=== PATIENT | female | born 1965 | race Caucasian/White ===

== ENCOUNTER 2024-10-17 13:34 | Inpatient (IN) | payer OTHER, SELFPAY ==
--- OUTSIDE RECORDS SUMMARY | 2024-09-16 12:30 | XMS_ITS ---
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 Role Phone Olinda Quinones Primary Care Provider [phone] REASON FOR VISIT Short of breath/Lower body swelling up Social History Sex Assigned At : Social History Observation Description Sex Assigned At Female Encounters Encounter Location Date Provider Diagnosis [facility] [address] [place] [address] 09/16/2024 Olinda Quinones Plan Of Treatment Next Appt Details Provider Name:Olinda jules, 11/11/2024 03:00:00 PM, [address] [facility], [facility] [place], [address], Progress Notes * AMINAH LAND MDOB: [birth year] (58 yo F)Acc No.[id number]:09/16/2024 Progress Notes Patient: AMINAH MORRISON Provider: EVELINE Dozier :1965 A ge:58 Y S ex:Female Date:09/16/2024 Address:[address], [place], [id number] Subjective: * Chief Complaints: * 1 . Short of breath/Lower body swelling up. * Medical History: Objective: * Vitals: Assessment: Plan: * Treatment: * Images: * Electronic signature of Rere Quinones CNP on 10/17/2024 at 01:51 PM EDT Sign off status: Pending * Provider: Addis Quinones NP-Santa Date: 0 09/16/2024 Generated for Mary goins/Jorge Alberto/Antonietta on: 0 10/17/2024 01:51 PM EDT
--- OUTSIDE RECORDS SUMMARY | 2024-10-11 06:30 | XMS_ITS ---
Author Organization [employer] [facility] es Address [address] [place] [address] Care Team Providers Care Business Support Specialist Name Role Phone Olinda Quinones Primary Care Provider Allergies No Known Allergies REASON FOR VISIT High ammonia levels; Return to work. BERNY Medications Medication SIG (Take, Route, Frequency, Duration) Notes Start Date End Date Status Atorvastatin Calcium 20 MG TAKE 1 TABLET BY MOUTH DAILY; Duration: 30 days Active Spironolactone 100 MG 1 tablet Orally da jessenia; Duration: 30 days placed on hold Active Magnesium 250 MG 1 tablet with a meal Orally twice a day; Duration: 30 days Active Xifaxan 550 MG 1 tablet Orally Twic e a day; Duration: 30 days Active busPIRone HCl 10 mg TAKE 1 TABLET BY MIGUEL ÁNGEL TH TWICE DAILY 30 days; Duration: 30 Active Blood Pressure Monitor - as directed 02/20/2024 Active Ondansetron HCl 8 MG 1 tablet as needed Orally Once a day; Duration: 30 days 03/07/2024 Active Farxiga 10 mg TAKE 1 TABLET BY MIGUEL ÁNGEL TH ONCE DAILY 30 days; Duration: 30 Active Carvedilol 6.25 mg TAKE 1 TABLET BY MIGUEL ÁNGEL TH TWICE DAILY WITH FOOD; Duration: 30 Active metFORMIN HCl 1000 MG TAKE 1 TABLET BY M OUTH TWICE DAILY WITH MEALS; Duration: 30 Active Lactulose 20 GM/30ML 15 mL as needed Ora lly Once a day Active Lantus SoloStar 100 UNIT/ML INJECT 34 UNITS SUBCUTANEOUSLY ONCE DAILY; Duration: 50 days Active Dexcom G7 Electrician Supervisor - as directed 05/10/2023 Active Easy Touch Lancets 28G - USE DIRECTED ONCE DAILY; Duration: 100 Active Pen [place] 08/01 31G X 8 MM as directed once a day; Duration: 30 days 07/31/2022 Active Dexcom G7 Sensor - as directed as directed; Duration: 30 days 09/27/2022 Active Furosemide 40 MG 1 tablet Orally Once a day Active Vitamin D3 25 MCG (1000 UT) 1 capsule Orally Once a day; Duration: 30 days Active Esomeprazole Magnesium 40 MG TAKE 1 CAPSULE BY MOUTH ONCE DAILY; Duration: 30 days Active Social History Tobacco Use: Social History Observation Description Date Details (start date - stop date) Never Smoker NA - NA Sex Assigned At : Social History Observation Description Sex Assigned At Female Sexual Hx: Question Answer Notes Had sex in the last 12 months (vaginal, oral, or anal)? No Have you ever had an STD? No AUDIT-C (Standard) Question Answer Notes Did you have a drink containing alcohol in the p ast year? No Points 0 Interpretation Negative Tobacco Control (Standard) Question Answer Notes Tobacco use: Nonsmoker Vital Signs Height 64.5 in 10/11/2024 Weight 192.8 lbs 10/11/2024 BMI 32.58 kg/m2 10/11/2024 Temperature 98.1 degrees Fahrenheit 10/12/19 25 Blood pressure systolic 101 mm Hg 10/12/19 25 Blood pressure diastolic 66 mm Hg 025 Oximetry 98 % 10/11/2024 Heart Rate 69 /min 10/11/2024 Respiratory Rate 18 /min 10/11/2024 Encounters Encounter Location Date Provider Diagnosis [facility] [address] [place] [address] 10/11/2024 Olinda Quinones Diabetes mellitus ty pe 2, controlled E11.9 ; Essential (primary) hypertension I10 ; Heart failure, unspecified I50.9 ; Cirrhosis, alcoholic K70.30 ; Cardiomyopathy I42.9 and History of recent hospitalization Z92.89 Assessments Encounter Date Diagnosis (ICD Code) Assessment Notes Treatment Notes Treatment Clinical Notes Section Notes 10/11/2024 Diabetes mellitus type 2, controlled (ICD-10 - E11.9) 10/11/2024 Essential (primary) hypertension (ICD-10 - I10) 10/11/2024 Heart failure, unspecified (ICD-10 - I50.9) 10/11/2024 Cirrhosis, alcoholic (ICD-10 - K70.30) 10/11/2024 Cardiomyopathy (ICD-10 - I42.9) 10/11/2024 History of recent hospitalization (ICD-10 - Z92.89) Reviewed discharge summary from recent hospitalization. Patient taking medications as prescribed. Refills provided as patient requested. Discussed importance of taking lactulose. Follow up in 6 weeks. All questions and concerns addressed. 10/11/2024 Other Body Mass Index : Care Instructions material was published Plan Of Treatment Medication Medication Name Sig Start Date Stop Date Notes Xifaxan 550 MG 1 tablet Orally Twic e a day; Duration: 30 days Dexcom G7 Sensor - as directed as direc milady; Duration: 30 days 09/27/2022 Vitamin D3 25 MCG (1000 UT) 1 capsule Or ally Once a day; Duration: 30 days Treatment Notes Assessment Notes History of recent hospitalization Review ed discharge summary from recent hospitalization. Patient taking medications as prescribed. Refills provided as patient requested. Discussed importance of taking lactulose. Follow up in 6 weeks. All questions and concerns addressed. Other Body Mass Index: Car e Instructions material was published Next Appt Details Follow Up: 6 Weeks, Reason: Provider Name:Olinda jules, 11/11/2024 03:00:00 PM, [facility] [place], [address], Progress Notes * AMINAH LAND MDOB: [birth year] (58 yo F)Acc No.[id number]:10/11/2024 Progress Note Patient: AMINAH MORRISON Provider: EVELINE Dozier :1965 A ge:58 Y S ex:Female Date:10/11/2024 Address:[address] [place] [address], [id number] Subjective: * Chief Complaints: * 1 . High ammonia levels; Return to work. BERNY. * HPI: D epression Screening: PHQ-2 (2015 Edition) L ittle interest or pleasure in doing things??Not at all F eeling down, depressed, or hopeless? N ot at all T otal Score 0 Patient recently hospitalized due to elevated ammonia levels.? Patient admits to not taking lactulose for a week. * ROS: G eneral Review of Systems: General D enies fever, chills, weight loss. E yes D enies vision changes, no double vision or blurry vision. . H EENT D enies sore throat, ear pain., Denies fevers , chills, Denies nasal congestion, or pressure, Denies hoarseness, change in voice, difficulty swallowing. C ardiovascular D enies chest pain, palpitations, exertional dyspnea. R espiratory D enies cough, dyspnea, wheezing, sputum production, hemoptysis. G astrointestinal D enies abdominal pain, nausea, vomiting, diarrhea, or constipation. Denies blood in stool or changes in bowel habits.. G enitourinary D enies urgency, frequency, dysuria, hematuria. M usculoskeletal D enies joint pain, myalgias. D ermatology D enies rashes or lesions. N eurological D enies any lightheadedness, dizziness, headache, new numbness or tingling in hands or feet. . * Medical History: L EVEL 4, CHF, DIABETES, Depression, Cirrohis of liver, HTN, Hyperlipidemia, Hiatal hernia, Splenomegaly, Anemia, Esophageal varices, Drug Abuse. * Surgical History: H EEL SPUR 03/2011, TUBAL LIGATION 1990, Cholecystectomy , Lumpectomy Lt breast benign , right knee surgery , Left knee cartilage scrap 04/2016, EGD , total abdominal hysterectomy , Back Surgery , kyphoplasty . * Hospitalization/Major Diagno stic Procedure: C HF 01/2012, PSYCH 1-SOUTH 1999, Community acquired pneumonia 02/2013, GI bleed 02/2015, abdominal pain 05/2022, Congestive heart Failure , Ammonia Levels 12/2023, see surgical . * Family History: D aughter(s): alive. S on(s): alive. F ather: , CHF, diagnosed with Heart Disease. M other: , CHF, diagnosed with Heart Disease. M aternal Grand Mother: DIABETES, CANCER. 2 sister(s) - healthy. 2 son(s) , 1 daughter(s) - healthy. . * Social History: G eneral: T ransition of Care E R//hospital since last office visit? N o S pecialist seen since last office visit? N o Behaviors affecting health P oor/Risky Behaviors: D enies- Substance abuse/mental health issues of patient/family P atient - m [facility] Social/Support Concerns P atient: N o Ability to understand healthcare/treatment P atient: G ood Communication Barrier L anguage Barrier?: N ot Needed Sexual Hx H ad sex in the last 12 months (vaginal, oral, or anal)? N o H ave you ever had an STD? N o D rug/Alcohol: A SHY-C (Standard) D id you have a drink containing alcohol in the past year? N o P oints 0 I nterpretation N egative T obacco Use: T obacco Control (Standard) T obacco use: N onsmoker * Medications: T aking Xifaxan 550 MG Tablet 1 tablet Orally Twice a day , Taking Vitamin D3 25 MCG (1000 UT) Capsule 1 capsule Orally Once a day , Taking Furosemide 40 MG Tablet 1 tablet Orally Once a day , Taking Esomeprazole Magnesium 40 MG Capsule Delayed Release TAKE 1 CAPSULE BY MOUTH ONCE DAILY , Taking Lactulose 20 GM/30ML Solution 15 mL as needed Orally Once a day , Taking Lantus SoloStar 100 UNIT/ML Solution Pen-injector INJECT 34 UNITS SUBCUTANEOUSLY ONCE DAILY , Taking Dexcom G7 Electrician Supervisor - Device as directed , Taking Easy Touch Lancets 28G - Miscellaneous USE DIRECTED ONCE DAILY , Taking Pen [place] 5/16 31G X 8 MM Miscellaneous as directed once a day , Taking Blood Pressure Monitor - Device as directed , Taking Ondansetron HCl 8 MG Tablet 1 tablet as needed Orally Once a day , Taking Farxiga 10 mg Tablet TAKE 1 TABLET BY MOUTH ONCE DAILY 30 days , Taking Carvedilol 6.25 mg Tablet TAKE 1 TABLET BY MOUTH TWICE DAILY WITH FOOD , Taking metFORMIN HCl 1000 MG Tablet TAKE 1 TABLET BY MOUTH TWICE DAILY WITH MEALS , Taking busPIRone HCl 10 mg Tablet TAKE 1 TABLET BY MOUTH TWICE DAILY 30 days , Taking Atorvastatin Calcium 20 MG Tablet TAKE 1 TABLET BY MOUTH DAILY , Taking Spironolactone 100 MG Tablet 1 tablet Orally daily , Notes to Pharmacist: placed on hold, Taking Dexcom G7 Sensor - Miscellaneous as directed as directed , Taking Magnesium 250 MG Tablet 1 tablet with a meal Orally twice a day , Medication List reviewed and reconciled with the patient * Allergies: N .K.D.A. Objective: * Vitals: H t: 64.5 in, Wt: 192.8 lbs, BMI:32.58Index, Temp: 98.1 F, BP: 101/66 mm Hg, SaO2:98%, HR: 69 /min, RR: 18 /min. Assessment: * Assessment: 1. D iabetes mellitus type 2, controlled - E11.9 (Primary) 2 . E ssential (primary) hypertension - I10 3 . H eart failure, unspecified - I50.9 ?4. C irrhosis, alcoholic - K70.30 5 . C ardiomyopathy - I42.9 & #160; 6 . H istory of recent hospitalization - Z92.89 Plan: * Treatment: 2. H istory of recent hospitalization Notes: Reviewed discharge summary from recent hospitalization. Patient taking medications as prescribed. Refills provided as patient requested. Discussed importance of taking lactulose. Follow up in 6 weeks. All questions and concerns addressed. 3. O thers Refill Xifaxan Tablet, 550 MG, 1 tablet, Orally, Twice a day, 30 days, 60 Tablet, Refills 1; R efill Vitamin D3 Capsule, 25 MCG (1000 UT), 1 capsule, Orally, Once a day, 30 days, 30 Capsule, Refills 1. Notes: Body Mass Index: Care Instructions material was published * Procedure Codes: 3 078F DIAST BP < 80 MM HG, 3074F SYST BP LT 130 MM HG, 1160F RVW MEDS BY RX/DR IN RCRD * Preventive Medicine: COUNSELING: C ommunication to patient: Counseling for Nutrition Provided Y es Counseling for Physical Activity Provided Y es BMI management provided Y es Nutrition/Dietary Counseling provided?Yes * Follow Up: 6 Weeks Care Plan: * Problems: * Images: * Sign off status: Completed true * Provider: EVELINE Dozier Date: 10/11/2024 Generated for Mary goins/Jorge Alberto/Antonietta on: 10/17/2024 01:51 PM EDT History and Physical Notes * HPI (History of Present Illness) Category Sub-Category Detail Notes Category Not es Depression Screening PHQ-2 (2015 Edition) Little interest or pleasure in doing things?: Not at all Patient recently hospitalized due to elevated ammonia levels. Patient admits to not taking lactulose for a week. Feeling down, depressed, or hopeless?: N ot at all Total Score: 0
--- OUTSIDE RECORDS SUMMARY | 2024-10-13 10:30 | XMS_ITS ---
Author Organization [facility] es Address [address] [place] [address] Care Team Providers Care Oncology Coordinator Name Role Phone Olinda Quinones Primary Care Provider REASON FOR VISIT 3 month f/u DM, A1C Social History Sex Assigned At : Social History Observation Description Sex Assigned At Female Encounters Encounter Location Date Provider Diagnosis [facility] [address] [facility] [place] [address] 10/13/2024 lOinda Quinones Plan Of Treatment Next Appt Details Provider Name:Olinda jules, 11/11/2024 03:00:00 PM, [address] [place], [address], Progress Notes * AMINAH LAND MDOB: [birth year] (58 yo F)Acc No.[id number]:10/13/2024 Progress Notes Patient: AMINAH MORRISON Provider: EVELINE Dozier :1965 A ge:58 Y S ex:Female Date:10/13/2024 Address:[address], [place], [id number] Subjective: * Chief Complaints: * 1 . 3 month f/u DM, A1C. * Medical History: Objective: * Vitals: Assessment: Plan: * Treatment: * Images: * Electronic signature of Rere Quinones CNP on 10/17/2024 at 01:51 PM EDT Sign off status: Pending * Provider: Addis Quinones NP-Santa Date: 0 10/13/2024 Generated for Mary goins/Jorge Alberto/Antonietta on: 0 10/17/2024 01:51 PM EDT
[2024-10-17] VITALS (31 sets, daily range): BP systolic 123–183; BP diastolic 67–110; PULSE 85–112; TEMP 36.4–37.2; O2SAT 94–100; BMI 28.3; BMI 30.3
--- NOTE | 2024-10-17 13:45 | CT_ITS ---
The [address] [address] Patient Name: AMINAH LAND MRN: [id number] date: 1965 Sex: F Assigned Patient Location: ER Current Patient Location: .[facility] Accession/Order Number: [id number] Exam Date: 10/17/2024 14:03 Report Date: 10/17/2024 14:06 At the request of: MANUEL WELLINGTON Procedure: CT stroke head/brain wo con CT stroke head/brain wo con 10/17/2024 1:58 PM SIGNS AND SYMPTOMS: Confusion TECHNIQUE:Multi-detector CT axial slices of the brain were obtained without IV contrast. CT was performed with one or more of the following dose reduction techniques: Automated exposure control, adjustment of the mA and/or kV according to patient size, or use of iterative reconstruction technique. COMPARISON: 10/01/2024 FINDINGS: There is no shift of the midline structures, acute intracranial bleeding, mass effects, or evidence of acute ischemia. The ventricular system is normal in size. The brainstem and the cerebellum are unremarkable. The visualized intraorbital contents, the visualized paranasal sinuses, and the infratemporal soft tissues show no acute abnormality. The osseous structures in the skull base and the calvarium show no abnormality. CT/CT stroke head/brain wo con IMPRESSION: Normal noncontrasted CT brain. Impression dictated by: Shasih Sepulveda M.D. 10/17/2024 2:06 PM Dictation [facility] Electronically authenticated by: [id number] Y Date: 10/17/2024 14:06
--- NOTE | 2024-10-17 13:45 | XR_ITS ---
[address] [address] Patient Name: AMINAH LAND MRN: [id number] date: 1965 Sex: F Assigned Patient Location: ER Current Patient Location: ED.MAIN Accession/Order Number: [id number] Exam Date: 10/17/2024 14:06 Report Date: 10/17/2024 14:07 At the request of: MANUEL WELLINGTON Procedure: XR chest 1V XR chest 1V 10/17/2024 2:00 PM SIGNS AND SYMPTOMS: ^AMS PROTOCOL: Frontal radiograph of the chest COMPARISON: 01/15/2024 FINDINGS: The trachea is midline. The heart and mediastinal structures are within normal limits. The lung parenchyma is clear. The bony thorax is intact. Degenerative changes are noted in the shoulders and thoracic spine. XR/XR chest 1V IMPRESSION: No acute cardiopulmonary pathology. Impression dictated by: Shashi Sepulveda M.D. 10/17/2024 2:07 PM Dictation Location: [place] [address] Electronically authenticated by: [id number] Y Date: 10/17/2024 14:07
--- NOTE | 2024-10-17 13:45 | ECG_ITS ---
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 Measurements Intervals Mercedes Rate: 103 P: 50 MN: 146 QRS: -2 QRSD: 84 T: 70 QT: 352 QTc: 411 Interpretive Statements 1120 Sinus tachycardia 4068 Nonspecific Twave abnormality abnormal ECG No previous ECG available for comparison Electronically Signed On 10-17-2024 18:32:10 EDT by CHER BURGOS M.D.
--- NOTE | 2024-10-17 13:48 | ED.GENADUL1 ---
HPI HPI - General Adult General Chief complaint: Altered Mental Status Stated complaint: CONFUSION Time Seen by Provider: 10/17/24 13:36 Source: patient and family Source information: patient and daughter Mode of arrival: walk-in Limitations: altered mental status History of Present Illness HPI narrative: Patient to the emergency department accompanied by daughter with chief complaint of worsening confusion over the past 2 to 3 days. Patient has a history of hepatic encephalopathy with elevated ammonia levels due to prior alcoholism though the patient states she has not drank alcohol in the past year. Daughter states that the patient was admitted into another hospital approximately 2 weeks ago with high ammonia levels and was acting the same way. Patient is alert to person and place but altered to time and situation. Patient does state that she has had associated nausea and vomiting. Has been taking her lactulose though she has not taken any of her medications today due to could not remember to take them . Daughter does state that patient has tested positive for cocaine recently on prior hospitalizations though the patient denies any cocaine usage Onset (ago): day(s) (2-3) Related Data Home Medications ?Medication ?Instructions ?Recorded ?Confirmed atorvastatin 20 mg tablet 20 mg PO DAILY 10/17/24 10/17/24 buspirone 10 mg tablet 10 mg PO BID 10/17/24 10/17/24 carvedilol 6.25 mg tablet 6.25 mg PO BID 10/17/24 10/17/24 cholecalciferol (vitamin D3) 25 25 mcg PO DAILY 10/17/24 10/17/24 mcg (1,000 unit) tablet (Vitamin D3) dapagliflozin propanediol 10 mg 10 mg PO DAILY 10/17/24 10/17/24 tablet (Farxiga) esomeprazole magnesium 40 mg 40 mg PO BID 10/17/24 10/17/24 capsule,delayed release furosemide 40 mg tablet 40 mg PO DAILY 10/17/24 10/17/24 lactulose 10 gram/15 mL oral 30 g PO TID 10/17/24 10/17/24 solution magnesium 250 mg tablet 250 mg PO BID 10/17/24 10/17/24 metformin 1,000 mg tablet 1,000 mg PO BID 10/17/24 10/17/24 rifaximin 550 mg tablet (Xifaxan) 550 mg PO BID 10/17/24 10/17/24 spironolactone 100 mg tablet 100 mg PO DAILY 10/17/24 10/17/24 Allergies Allergy/AdvReac Type Severity Reaction Status Date / Time No Known Drug Allergies Allergy Verified 10/17/24 13:45 Opioid HPI Opioid Management Most Recent Opioid Data: Last Pain Scale 0 Today, 14:02 Ur Phencyclidine Scrn, (NEGATIVE) Negative Today, 13:55 Review of Systems ROS Status of ROS unobtainable due to mental status (states cant remember to most ROS) Gastrointestinal Reports: nausea, vomiting and diarrhea Psychiatric Reports: anxiety PFSH PFSH Social History Little interest or pleasure in doing things: not at all Feeling down, depressed, or hopeless: not at all Exam Constitutional Vital Signs, click to edit/add: Last Vital Signs Temp 97.6 F 10/17/24 13:37 Pulse 112 H 10/17/24 16:40 Resp 27 H 10/17/24 16:40 BP 169/94 H 10/17/24 15:45 Pulse Ox 98 10/17/24 16:40 O2 Del Method Room Air 10/17/24 13:37 Documenting provider has reviewed patient's vital signs: yes Common normals: no apparent distress Exam limitations: altered mental status General appearance: anxious Orientation/consciousness: Yes awake, Yes oriented to person and Yes confused Cardio Common normals: regular rhythm Rate: tachycardic Neuro Common normals: moves all extremities and no focal motor deficits Sensorium/orientation: awake and alert Psych Common normals: denies homicidal ideation and denies suicidal ideation Course Vital Signs Vital signs: Vital Signs Temperature 97.6 F 10/17/24 13:37 Pulse Rate 99 H 10/17/24 13:37 Respiratory Rate 16 10/17/24 13:37 Blood Pressure 183/110 H 10/17/24 13:37 Pulse Oximetry 99 10/17/24 13:37 Oxygen Delivery Method Room Air 10/17/24 13:37 Temperature 97.6 F 10/17/24 13:37 Pulse Rate 112 H 10/17/24 16:40 Respiratory Rate 27 H 10/17/24 16:40 Blood Pressure 169/94 H 10/17/24 15:45 Pulse Oximetry 98 10/17/24 16:40 Oxygen Delivery Method Room Air 10/17/24 13:37 Medical Decision Making MDM Narrative Medical decision making narrative: Patient presented to the emergency department with family with a chief complaint of worsening confusion over the past 2 to 3 days with a known history of hepatic encephalopathy. Patient reportedly has been taking her lactulose as directed though she had not taken any of her medicines today. Patient did have associated nausea and vomiting but given her confusion cannot provide much insight into any other review of systems. Patient very anxious and tearful but in no acute distress. She had no focal neurologic deficits on exam and a CT of the head was obtained and negative. Chest x-ray clear no signs of fluid overload. Ammonia 88 today. INR 1.2, mild hyperbilirubinemia. Review of charting from hospitalization at [facility] less than 1 month ago reviewed and showed that patient had a presenting ammonia of 72 and underwent echocardiography with mild diastolic dysfunction and EF of 50 to 55%. Patient has remained in no acute distress but remains disoriented. ABG unremarkable. Patient given oral lactulose but will require admission for exacerbation of her encephalopathy. Differential Diagnosis Differential Diagnosis: CVA, hepatic encephalopathy, UTI, pneumonia, sepsis, bowel obstruction Medical Records Medical records reviewed: Yes I reviewed the patient's medical records Lab Data Lab results reviewed: Yes I reviewed the patient's lab results Lab results narrative: No leukocytosis, anemia, hypokalemia, UTI, UDS positive for cocaine and marijuana Labs: Lab Results 10/17/24 10/17/24 10/17/24 Range/Units 13:50 13:55 14:11 WBC 8.0 (4.0-11.0) 10^3/uL RBC 3.99 L (4.20-5.40) 10^6/uL Hgb 12.8 (12.0-16.0) g/dL Hct 36.7 (36.0-48.0) % MCV 92.0 (81.0-99.0) fL MCH 32.1 (26.7-34.0) pg MCHC 34.9 (29.9-35.2) g/dL RDW 14.6 (11.0-15.0) % Plt Count 140 L (150-450) 10^3/uL MPV 9.6 (9.5-13.5) fL Neut % (Auto) 65.1 (43.0-75.0) % Lymph % (Auto) 23.0 (20.5-60.0) % [place]t % (Auto) 8.9 (1.7-12.0) % Eos % (Auto) 1.9 (0.9-7.0) % Baso % (Auto) 0.6 (0.2-2.0) % Neut # (Auto) 5.2 (1.4-6.5) 10^3/uL Lymph # (Auto) 1.8 (1.2-3.8) 10^3/uL [place] # (Auto) 0.7 (0.3-0.8) 10^3/uL Eos # (Auto) 0.2 (0.0-0.7) 10^3/uL Baso # (Auto) 0.1 (0.0-0.1) 10^3/uL Abs Immat Gran (auto) 0.04 H (0.00-0.03) 10^3/uL Imm/Tot Granulo (auto) 0.5 (0.0-0.5) % PT 12.5 H (9.0-11.6) sec INR 1.20 Puncture Site ABG pH (7.350-7.450) ABG pCO2 (35.0-45.0) mmHg ABG pO2 (80.0-100.0) mmHg ABG HCO3 (22.0-26.0) mmol/L ABG O2 Saturation % ABG Base Excess (-2.0-2.0) mmol/L Abdirizak Test (POSITIVE) Sodium 138 (136-145) mmol/L Potassium 4.6 (3.5-5.1) mmol/L Chloride 104 (98-107) mmol/L Carbon Dioxide 25.0 (21.0-32.0) mmol/L Anion Gap 13.6 BUN 16.0 (7.0-18.0) mg/dL Creatinine 1.02 (0.55-1.02) mg/dL Est GFR ( Amer) >60 (>=60 mL/min/1.73m^2) Est GFR (Non-Af Amer) 55 L (>=60 mL/min/1.73m^2) BUN/Creatinine Ratio 15.7 Glucose 223 H (74-106) mg/dL Lactate 1.9 (0.4-2.0) mmol/L Calcium 9.0 (8.5-10.1) mg/dL Total Bilirubin 2.5 H (0.2-1.0) mg/dL AST 57 H (15-37) U/L ALT 47 (14-59) U/L Alkaline Phosphatase 239 H (46-116) U/L Ammonia 88 H* (11-32) umol/L Troponin I High Sens 24.2 (4.0-51.3) pg/mL C-Reactive Protein 1.39 H (<=0.50) mg/dL Total Protein 6.9 (6.4-8.2) g/dL Albumin 3.1 L (3.4-5.0) g/dL Globulin 3.8 g/dL Albumin/Globulin Ratio 0.8 TSH 2.100 (0.358-3.740) uIU/mL Urine Color Lt. yellow (YELLOW) Urine Clarity Sl cloudy (CLEAR) Urine pH 7.0 (5.0-9.0) Ur Specific [place] 1.010 (1.005-1.025) Urine Protein Negative (NEG/TRACE) mg/dL Urine Glucose (UA) >=1000 A (NEGATIVE) mg/dL Urine Ketones Negative (NEGATIVE) mg/dL Urine Occult Blood Negative (NEGATIVE) Urine Nitrite Negative (NEGATIVE) Urine Bilirubin Negative (NEGATIVE) Urine Urobilinogen 4.0 A (0.2-1.0) EU/dL Ur Leukocyte Esterase Negative (NEGATIVE) Urine RBC None seen (0-2) #/HPF Urine WBC 2-5 A (NONE SEEN) #/HPF Ur Squamous Epith Cells Moderate A (NONE/RARE) #/LPF Urine Crystals None seen (None Seen) #/HPF Urine Bacteria Large A (NONE SEEN) #/HPF Urine Casts None seen (NONE SEEN) #/LPF Urine Mucus None seen (NONE SEEN) Ur [place] Indicated[place] [place]icylates <2.8 (<=19.9) mg/dL Urine Opiates Screen Negative (NEGATIVE) Ur Buprenorphine Scrn Negative (NEGATIVE) Ur Oxycodone Screen Negative (NEGATIVE) Urine Methadone Screen Negative (NEGATIVE) Acetaminophen <2.0 L (10.0-30.0) ug/mL Ur Barbiturates Screen Negative (NEGATIVE) U Tricyclic Antidepress Negative (NEGATIVE) Ur Phencyclidine Scrn Negative (NEGATIVE) Ur Amphetamines Screen Negative (NEGATIVE) U Methamphetamines Scrn Negative (NEGATIVE) U Benzodiazepines Scrn Negative (NEGATIVE) Urine Cocaine Screen Positive A (NEGATIVE) U Cannabinoids Screen Positive A (NEGATIVE) Ethanol Quant <3 mg/dL 10/17/24 Range/Units 14:56 WBC (4.0-11.0) 10^3/uL RBC (4.20-5.40) 10^6/uL Hgb (12.0-16.0) g/dL Hct (36.0-48.0) % MCV (81.0-99.0) fL MCH (26.7-34.0) pg MCHC (29.9-35.2) g/dL RDW (11.0-15.0) % Plt Count (150-450) 10^3/uL MPV (9.5-13.5) fL Neut % (Auto) (43.0-75.0) % Lymph % (Auto) (20.5-60.0) % [place]andt % (Auto) (1.7-12.0) % Eos % (Auto) (0.9-7.0) % Baso % (Auto) (0.2-2.0) % Neut # (Auto) (1.4-6.5) 10^3/uL Lymph # (Auto) (1.2-3.8) 10^3/uL [place] # (Auto) (0.3-0.8) 10^3/uL Eos # (Auto) (0.0-0.7) 10^3/uL Baso # (Auto) (0.0-0.1) 10^3/uL Abs Immat Gran (auto) (0.00-0.03) 10^3/uL Imm/Tot Granulo (auto) (0.0-0.5) % PT (9.0-11.6) sec INR Puncture Site Rr ABG pH 7.447 (7.350-7.450) ABG pCO2 31.1 L (35.0-45.0) mmHg ABG pO2 87.8 (80.0-100.0) mmHg ABG HCO3 21.4 L (22.0-26.0) mmol/L ABG O2 Saturation 97.6 % ABG Base Excess -2.6 L (-2.0-2.0) mmol/L Abdirizak Test Positive (POSITIVE) Sodium (136-145) mmol/L Potassium (3.5-5.1) mmol/L Chloride (98-107) mmol/L Carbon Dioxide (21.0-32.0) mmol/L Anion Gap BUN (7.0-18.0) mg/dL Creatinine (0.55-1.02) mg/dL Est GFR ( Amer) (>=60 mL/min/1.73m^2) Est GFR (Non-Af Amer) (>=60 mL/min/1.73m^2) BUN/Creatinine Ratio Glucose (74-106) mg/dL Lactate (0.4-2.0) mmol/L Calcium (8.5-10.1) mg/dL Total Bilirubin (0.2-1.0) mg/dL AST (15-37) U/L ALT (14-59) U/L Alkaline Phosphatase (46-116) U/L Ammonia (11-32) umol/L Troponin I High Sens (4.0-51.3) pg/mL C-Reactive Protein (<=0.50) mg/dL Total Protein (6.4-8.2) g/dL Albumin (3.4-5.0) g/dL Globulin g/dL Albumin/Globulin Ratio TSH (0.358-3.740) uIU/mL Urine Color (YELLOW) Urine Clarity (CLEAR) Urine pH (5.0-9.0) Ur Specific [place] (1.005-1.025) Urine Protein (NEG/TRACE) mg/dL Urine Glucose (UA) (NEGATIVE) mg/dL Urine Ketones (NEGATIVE) mg/dL Urine Occult Blood (NEGATIVE) Urine Nitrite (NEGATIVE) Urine Bilirubin (NEGATIVE) Urine Urobilinogen (0.2-1.0) EU/dL Ur Leukocyte Esterase (NEGATIVE) Urine RBC (0-2) #/HPF Urine WBC (NONE SEEN) #/HPF Ur Squamous Epith Cells (NONE/RARE) #/LPF Urine Crystals (None Seen) #/HPF Urine Bacteria (NONE SEEN) #/HPF Urine Casts (NONE SEEN) #/LPF Urine Mucus (NONE SEEN) Ur Culture Indicated? Salicylates (<=19.9) mg/dL Urine Opiates Screen (NEGATIVE) Ur Buprenorphine Scrn (NEGATIVE) Ur Oxycodone Screen (NEGATIVE) Urine Methadone Screen (NEGATIVE) Acetaminophen (10.0-30.0) ug/mL Ur Barbiturates Screen (NEGATIVE) U Tricyclic Antidepress (NEGATIVE) Ur Phencyclidine Scrn (NEGATIVE) Ur Amphetamines Screen (NEGATIVE) U Methamphetamines Scrn (NEGATIVE) U Benzodiazepines Scrn (NEGATIVE) Urine Cocaine Screen (NEGATIVE) U Cannabinoids Screen (NEGATIVE) Ethanol Quant mg/dL Imaging Data CT scan - head: Attestation: I have reviewed the pertinent imaging results. Radiologist's impression: ITS Impressions Brain CT 10/17/24 13:45 IMPRESSION: Normal noncontrasted CT brain. Impression dictated by: Shashi Sepulveda M.D. 10/17/2024 2:06 PM Dictation Location: [employer] Electronically authenticated by: [id number] Y Date: 10/17/2024 14:06 Chest X-Ray 10/17/24 13:45 IMPRESSION: No acute cardiopulmonary pathology. Impression dictated by: Shashi Sepulveda M.D. 10/17/2024 2:07 PM Dictation Location: [employer] Electronically authenticated by: [id number] Y Date: 10/17/2024 14:07 Abdomen/Pelvis CT 10/17/24 15:01 IMPRESSION: Findings of cirrhosis with splenomegaly and mild ascites. No definite acute inflammatory process or bowel obstruction although the mesenteric congestion does degrade evaluation for detection of inflammatory changes. Impression dictated by: Amrik Og M.D. 10/17/2024 4:13 PM Dictation Location: [facility] Electronically authenticated by: [id number] Y Date: 10/17/2024 16:13 ECG Data Attestation: I personally reviewed and interpreted this ECG as follows: (Reviewed and interpreted by attending) Discharge Plan Discharge Chief Complaint: Altered Mental Status Clinical Impression: Acute hepatic encephalopathy, Altered mental status Patient Disposition: Admitted as Observation Time of Disposition Decision: 17:24 Condition: Fair
--- OUTSIDE RECORDS SUMMARY | 2024-10-17 13:51 | XMS_ITS | Encounter Summary ---
Author Organization [facility] Address [address] [place] [address] Phone Care Team Providers Care Fermenting Cellar Dropper Name Role Phone Judy Wang APRN-STONE PAVER Primary Care P rovider Sonia Parker APRN-STONE PAVER Primary Care Provider + Encounter Details Date Type Department Care Team (Late st Contact Info) Description 12/26/2023 Scanned Document [facility] [address] [place] [address] Scanning, Generic Provider Social History Tobacco Use Types Packs/Day Years Used Date Smoking Tobacco: Never Assessed Comments Unknown Sex and Gender Information Value Date Recorded Sex Assigned at Not on file Legal Sex Female 8:46 PM EST Gender Identity Not on file Sexual Orientation Not on file documented as of this encounter Plan of Treatment Upcoming Encounters Date Type Department Care Team (Late st Contact Info) Description 10/28/2024 2:30 PM EDT Office Visit [place] [id number] [phone] Tiffanie Caldera APRN-STONE PAVER 703 [facility] 2, [facility] [address] [place] [address] documented as of this encounter Visit Diagnoses Not on filedocumented in this encounter Care Teams Fermenting Cellar Dropper Relationship Specialty Start Date End Date Judy Wang APRN-CNP [address] [place] [address] PCP - General 09/12/21 06/25/24 Sonia Parker, LUCY-STONE PAVER [address] [place] [address] PCP - General 06/26/24 documented as of this encounter
--- OUTSIDE RECORDS SUMMARY | 2024-10-17 13:51 | XMS_ITS | Encounter Summary ---
Author Organization [facility] Address [address] [place] [address] Phone Care Team Providers Care Metal Stud Framer Name Role Phone Judy Wang APRN-PAVING STONE INSTALLER Primary Care P rovider Sonia Parker APRN-PAVING STONE INSTALLER Primary Care Provider + Encounter Details Date Type Department Care Team (Late st Contact Info) Description 03/10/2024 Scanned Document [facility] [address] [place] [address] Scanning, Generic Provider Social History [...] Description 10/28/2024 2:30 PM EDT Office Visit [place] [address] [phone] Tiffanie Caldera APRN-PAVING STONE INSTALLER 703 [facility] 2, [facility] [address] [place] [address] documented as of this encounter Visit Diagnoses Not on filedocumented in this encounter Care Teams Metal Stud Framer Relationship Specialty Start Date End Date Judy Wang APRN-CNP [address] [place] [address] PCP - General 09/12/21 06/25/24 Sonia Parker, LUCY-PAVING STONE INSTALLER [address] [place] [address] PCP - General 06/26/24 documented as of this encounter
--- OUTSIDE RECORDS SUMMARY | 2024-10-17 13:51 | XMS_ITS | Encounter Summary ---
Author Organization [facility] Address [address] [place] [address] Phone Care Team Providers Care Import Coordinator Name Role Phone Sonia Parker LUCY-POWDER PRESS OPERATOR Primary Care Provider + Encounter Details Date Type Department Care Team (Late st Contact Info) Description 10/02/2024 Scanned Document [facility] [address] [place] [id number] Scanning, Generic Provider Social History Tobacco Use Types Packs/Day Years Used Date Smoking Tobacco: Never Smokeless Tobacco: Never Alcohol Use Standard Drinks/Week Comments Not Currently 0 (1 standard drink = 0.6 oz pur e alcohol) Comments Unknown Sex and Gender Information Value Date Recorded Sex Assigned at Not on file Legal Sex Female 8:46 PM EST Gender Identity Not on file Sexual Orientation Not on file documented as of this encounter Plan of Treatment Upcoming Encounters Date Type Department Care Team (Late st Contact Info) Description 10/28/2024 2:30 PM EDT Office Visit [facility] [address] [phone] Tiffanie Caldera APRN-POWDER PRESS OPERATOR 703 [facility] 2, [address] [place] [address] documented as of this encounter Procedures Procedure Name Priority Date/Time Associated Diagnosis Comments ECHOCARDIOGRAM 10/02/2024 documented in this encounter Results * Echocardiogram (10/02/2024) Narrative 10/02/2024 Ordered by an unspecified provider. us Generic Provider Scanning CV ECHO PROCEDURES Fin al Result documented in this encounter Visit Diagnoses Not on filedocumented in this encounter Additional Health Concerns Assessment Noted Time A fall risk assessment has been complete d for the patient 06/26/2024 3:16 PM EDT documented as of this encounter Care Teams Import Coordinator Relationship Specialty Start Date End Date Sonia Parker, LUCY-POWDER PRESS OPERATOR [address] [place] [address] PCP - General 06/26/24 documented as of this encounter
--- OUTSIDE RECORDS SUMMARY | 2024-10-17 13:51 | XMS_ITS | Encounter Summary ---
Author Organization [facility] Address [address] [place] [address] Phone Care Team Providers Care Correction Warden Name Role Phone Judy Wang APRN-BROKERAGE OFFICE MANAGER Primary Care P rovider Sonia Parker APRN-BROKERAGE OFFICE MANAGER Primary Care Provider + Encounter Details Date Type Department Care Team (Late st Contact Info) Description 05/01/2024 Scanned Document [facility] [address] [place] [address] Scanning, Generic Provider Social History [...] Description 10/28/2024 2:30 PM EDT Office Visit [place] [address] [phone] Tiffanie Caldera APRN-BROKERAGE OFFICE MANAGER 703 [facility] 2, [facility] [address] [place] [address] documented as of this encounter Visit Diagnoses Not on filedocumented in this encounter Care Teams Correction Warden Relationship Specialty Start Date End Date Judy Wang APRN-CNP [address] [place] [address] PCP - General 09/12/21 06/25/24 Sonia Parker, LUCY-BROKERAGE OFFICE MANAGER [address] [place] [address] PCP - General 06/26/24 documented as of this encounter
--- OUTSIDE RECORDS SUMMARY | 2024-10-17 13:51 | XMS_ITS | Encounter Summary ---
Author Organization [facility] Address [address] [place] [address] Phone Care Team Providers Care Water Restoration Technician Name Role Phone Judy Wang CINETECHNICIAN-[facility] Primary Care P rovider Sonia Parker CINETECHNICIAN-[facility] Primary Care Provider + Encounter Details Date Type Department Care Team (Late st Contact Info) Description 12/24/2023 Scanned Document [facility] [address] [place] [address] Scanning, Generic Provider Social History [...] Description 10/28/2024 2:30 PM EDT Office Visit [facility] 703 [facility] [address] [place] [address] [facility]iff[facility] Calder[facility] 703 [facility] 2, [address] [place] [address] Scheduled Orders Name Type Priority Associated Diagnoses Orde r Schedule Ultrasound- OnBase Scan Imaging O rdered: 12/24/2023 documented as of this encounter Procedures Procedure Name Priority Date/Time Associated Diagnosis Comments OUTSIDE IMAGING SCAN 12/24/2023 documented in this encounter Results * OUTSIDE IMAGING SCAN (12/24/2023) Anatomical Region Laterality Modality Other Narrative 12/24/2023 Ordered by an unspecified provider. us Generic Provider Scanning OUTSIDE SCAN Final Result documented in this encounter Visit Diagnoses Not on filedocumented in this encounter Care Teams Water Restoration Technician Relationship Specialty Start Date End Date Judy Wang APRN-APARNA [address] [place] [address] PCP - General 09/12/21 06/25/24 Sonia Parker, LUCY-COTTON GINNER [address] [place] [address] PCP - General 06/26/24 documented as of this encounter
--- OUTSIDE RECORDS SUMMARY | 2024-10-17 13:51 | XMS_ITS | Clinical Summary ---
Author Organization [facility] Address [address] [place] [facility] [place] [address] Care Team Providers Care Tow Bar Driver Name Role Phone Unavailable Primary Care Provider Unavailabl e Social History Tobacco Use Types Packs/Day Years Used Date Smoking Tobacco: Never Assessed Comments Unknown Sex and Gender Information Value Date Recorded Sex Assigned at Not on file Legal Sex Female 7:29 PM EDT Gender Identity Not on file Sexual Orientation Not on file Last Filed Vital Signs Vital Sign Reading Time Taken Comments Blood Pressure 121/77 08/29/2021 12:00 PM EDT Pulse - - Temperature - - Respiratory Rate - - Oxygen Saturation - - Inhaled Oxygen Concentration - - Weight 90.7 kg (200 lb) 10/05/2021 12:00 PM EDT Height 165.1 cm (5' 5 ) 06/06/2021 12:00 PM EDT Body Mass Index 33.28 06/06/2021 12:00 PM EDT Plan of Treatment Health Maintenance Due Date Last Done Comments CT Colonography 1964 Colonoscopy 1964 Colorectal Cancer Screening 1964 FIT-DNA 1964 FIT 1964 FOBT 1964 Sigmoidoscopy 1964 Pap Smear 1985 Cervical Cancer Screening 1994 HPV/Cotest 1994 Mammogram 2004 Influenza Vaccine (#1) 2024 4, 11/28/2018, 01/31/2018, Additional history exists Insurance [employer]
--- OUTSIDE RECORDS SUMMARY | 2024-10-17 13:51 | XMS_ITS | Encounter Summary ---
Author Organization [facility] Address [address] [place] [address] Phone Care Team Providers Care Dietetics Professor Name Role Phone Judy Wang APRN-STEAM CONDITIONING OPERATOR Primary Care P rovider Sonia Parker APRN-STEAM CONDITIONING OPERATOR Primary Care Provider + Encounter Details Date Type Department Care Team (Late st Contact Info) Description 03/09/2024 Scanned Document [facility] [address] [place] [address] Scanning, Generic Provider Social History [...] Description 10/28/2024 2:30 PM EDT Office Visit [place] [phone] [phone] Tiffanie Caldear APRN-STEAM CONDITIONING OPERATOR 703 [facility] 2, [facility] [address] [place] [address] documented as of this encounter Visit Diagnoses Not on filedocumented in this encounter Care Teams Dietetics Professor Relationship Specialty Start Date End Date Judy Wang APRN-CNP [address] [place] [address] PCP - General 09/12/21 06/25/24 Sonia Parker, LUCY-STEAM CONDITIONING OPERATOR [address] [place] [address] PCP - General 06/26/24 documented as of this encounter
--- OUTSIDE RECORDS SUMMARY | 2024-10-17 13:51 | XMS_ITS | Encounter Summary ---
Author Organization [facility] Address [facility] [place] [address] Care Team Providers Care Forest Fire Prevention Manager Name Role Phone Cheo Govea Primary Care Provider [phone] DeondreTal Unavailable [phone] Source Comments In the event this information is protected by the Federal Confidentiality of Alcohol and Drug AbusePatient Records regulations: The Federal rules restrict any use of the information to criminally investigate or prosecute any alcohol or drug abuse patient.[facility] Encounter Details Date Type Department Care Team (Late st Contact Info) Description 11/10/2022 Patient Msg Gastroenterology [address] [address] Provider, C[facility] Appointment reminder Social History Tobacco Use Types Packs/Day Years Used Date Smoking Tobacco: Never Smokeless Tobacco: Never Alcohol Use Standard Drinks/Week Comments Yes 0 (1 standard drink = 0.6 oz pur e alcohol) occasionally Area Deprivation Index Answer Date Darryn rded National Score (1-100), lower number is lower ri sk 88 08/09/2022 State Score (1-10), lower number is lower risk 8 08/09/2022 Data from: https://www.neighborhoodatlas.medicine.[employer].edu/. Last address used for calculation [address] [facility] W 08/09/2022 Comments No Sex and Gender Information Value Date Recorded Sex Assigned at Not on file Legal Sex Female 9:37 AM EST Gender Identity Not on file Sexual Orientation Not on file documented as of this encounter Functional Status * Are you deaf or do you have serious difficulty hearing? Answer Date of Assessment Author No 03/25/2014 1:34 PM Nahed Arora MA * Are you blind or do you have serious difficulty seeing, even when wearing glasses? Answer Date of Assessment Author No 03/25/2014 1:34 PM EST Nahed Tavarez MA * Do you have serious difficulty walking or climbing stairs? Answer Date of Assessment Author No 03/25/2014 1:34 PM Nahed Arora MA * Do you have difficulty dressing or bathing? Answer Date of Assessment Author No 03/25/2014 1:34 PM Nahed Arora MA * Because of a physical, mental, or emotional condition, do you have difficulty doing errands alone such as visiting a doctor's office or shopping? Answer Date of Assessment Author No 03/25/2014 1:34 PM Nahed Arora MA documented as of this encounter Mental Status * Because of a physical, mental, or emotional condition, do you have serious difficulty concentrating, remembering, or making decisions? Answer Entry Date Author No 03/25/2014 1:34 PM Nahed Arora MA documented in this encounter Plan of Treatment Not on file documented as of this encounter Visit Diagnoses Not on filedocumented in this encounter Care Teams Forest Fire Prevention Manager Relationship Specialty Start Date End Date Cheo Govea DO PCP - General Family Medicine 09/26/13 Tal Mendosa DO Primary Staff Physician Cardiology 06/04/18 documented as of this encounter
--- OUTSIDE RECORDS SUMMARY | 2024-10-17 13:51 | XMS_ITS | Encounter Summary ---
Author Organization [facility] Address [address] [place] [address] Phone Care Team Providers Care Messenger Floorperson Name Role Phone Judy Wang APRN-ROPING MACHINE TENDER Primary Care P rovider Sonia Parker APRN-ROPING MACHINE TENDER Primary Care Provider + Encounter Details Date Type Department Care Team (Late st Contact Info) Description 12/25/2023 Scanned Document [facility] [address] [place] [address] Scanning, Generic Provider Social History [...] Description 10/28/2024 2:30 PM EDT Office Visit [place] [address] [address] Tiffanie Caldera APRN-ROPING MACHINE TENDER 703 [facility] 2, [facility] 250 [place] [address] documented as of this encounter Visit Diagnoses Not on filedocumented in this encounter Care Teams Messenger Floorperson Relationship Specialty Start Date End Date Judy Wang APRN-CNP [address] [place] [address] PCP - General 09/12/21 06/25/24 Sonia Parker, LUCY-ROPING MACHINE TENDER [address] [place] [address] PCP - General 06/26/24 documented as of this encounter
--- OUTSIDE RECORDS SUMMARY | 2024-10-17 13:51 | XMS_ITS | Encounter Summary ---
Author Organization [facility] Address [address] [place] [address] Phone Care Team Providers Care Heat Treat Operator Name Role Phone Judy Wang APRN-RELOCATION MANAGER Primary Care P rovider Sonia Parker APRN-RELOCATION MANAGER Primary Care Provider + Encounter Details Date Type Department Care Team (Late st Contact Info) Description 03/11/2024 Scanned Document [facility] [address] [place] [address] Scanning, Generic Provider Social History [...] Description 10/28/2024 2:30 PM EDT Office Visit [place] [address] [address] Tiffanie Caldera APRN-RELOCATION MANAGER 703 [facility] 2, [facility] 250 [place] [address] documented as of this encounter Visit Diagnoses Not on filedocumented in this encounter Care Teams Heat Treat Operator Relationship Specialty Start Date End Date Judy Wang APRN-CNP [address] [place] [address] PCP - General 09/12/21 06/25/24 Sonia Parker, LUCY-RELOCATION MANAGER [address] [place] [address] PCP - General 06/26/24 documented as of this encounter
--- OUTSIDE RECORDS SUMMARY | 2024-10-17 13:51 | XMS_ITS | Clinical Summary ---
Author Organization [facility] Address [address] [place] [address] Care Team Providers Care Irrigation Tax Assessor Collector Name Role Phone Cheo Govea DO Primary Care Provider [phone] DeondreTal Unavailable [phone] Allergies No known active allergies Medications alogliptin 25 mg tab Take by mouth once daily. Active glipiZIDE (GLUCOTROL) 10 mg tablet Take 20 mg by mouth once daily. Active lisinopril (ZESTRIL, PRINIVIL) 40 mg tablet Take 40 mg by mouth once daily. Active ferrous sulfate 325 mg (65 mg iron) tablet Take 325 mg by mouth twice daily with meals. Active diclofenac, EC, (VOLTAREN) 75 mg EC tablet Take 75 mg by mouth twice daily. Active metFORMIN (GLUCOPHAGE) 1,000 mg tablet Take 1,000 mg by mouth twice daily with meals. Active carvedilol (COREG) 12.5 mg tabletIndications: Cardiomyopathy, nonischemic (HCC) Take 1 tablet by mouth twice daily. 60 tablet 11 8 Active Blood Pressure Monitor kitIndications:Ess ential hypertension,Cardi omyopathy, nonischemic (HCC) 1 Kit once daily. Use as directed to monitor blood pressure in the home. DX: Essential HTN and Cardiomyopath y. 1 Kit 8 Active spironolactone (ALDACTONE) 25 mg tabletIndications: Cardiomyopathy, nonischemic (HCC) Take 1 tablet by mouth once daily. 90 tablet 0 Active rosuvastatin (CRESTOR) 20 mg tabletIndications: Mixed hyperlipidemia TAKE 1 TABLET BY MOUTH AT BEDTIME 30 tablet 1 Active furosemide (LASIX) 20 mg tablet Take 20 mg by mouth twice daily. Reported by pt Active SITagliptin phosphate (JANUVIA) 100 mg tablet Take 100 mg by mouth once daily. Reported by pt Active sucralfate (CARAFATE) 1 gram tablet Take 1 g by mouth four times daily. Reported by pt Active dapagliflozin (FARXIGA) 10 mg tablet Take by mouth daily with breakfast. Reported by pt Active busPIRone (BUSPAR) 10 mg tablet Take 10 mg by mouth three times daily. Reported by pt Active esomeprazole (NEXIUM) 40 mg capsule Take 1 capsule by mouth DAILY (6 AM). Reported by pt 30 capsule 2 3 Active ergocalciferol 50,000 unit capsule (VITAMIN D2, DRISDOL)Indication s:Vitamin D deficiency Take 1 capsule by mouth one time a week for 12 doses. 12 capsule 3 Active Active Problems Problem Noted Date Diagnosed Date Cardiomyopathy, nonischemic 06/01/2017 Assessment & Plan (06/01/2017 2:11 PM EDT): It is not completely clear what the circumstances were of her cardiomyopathy. Ever she does remember a normal stress test and thus I assume that it is a nonischemic cardiomyopathy. She has a family history of heart failure with her dad who at 64 years of age. For now she does not show any signs of clinical heart failure. Plan Titrate medications toward goal levels. Continue lisinopril 40 mg daily, continue furosemide 20mg daily. Increase carvedilol to 12.5 mg twice a day Decrease spironolactone to 25 mg twice a day Check BMP to ensure adequate renal function. Check echocardiogram for heart structure and function. Essential hypertension 06/01/2017 Assessment & Plan (06/01/2017 2:14 PM EDT): Her current blood pressure appears to be of goal. Therefore plan to titrate her medications and monitor her blood pressure more closely. I recommended that she check her blood pressure daily, keep a log, and bring that log with her at next visit. Plan Ordered blood pressure monitor kit Continue antihypertensive medications Continue lifestyle modifications with: Reduced sodium diet, regular exercise, maintenance of ideal body weight. Goal less than 130/80 mmHg Mixed hyperlipidemia 06/01/2017 Assessment & Plan (06/01/2017 2:15 PM EDT): For now her lipid levels are unknown. She is taking atorvastatin 10 mg daily. We should calculate her 10 year risk of ASCVD once her lipid panel results are known. Then consider titration of statin if needed. POST OP VISIT [V67.00] 02/25/2014 TEAR MEDIAL MENISCUS [836.0] 01/14/2014 Difficulty walking 05/31/2011 Muscular wasting and disuse atrophy, not elsewhere classified 05/31/2011 ACHILLES BURSITIS/TENDINITIS 04/21/2011 EXOSTOSIS, SITE 04/21/2011 Fitting and adjustment of orthopedic device 05/2011 Family History Medical History Relation Comments Heart Father Heart Mother Relation Status Comments Father Mother Social History Tobacco Use Types Packs/Day Years Used Date Smoking Tobacco: Never Smokeless Tobacco: Never Tobacco Cessation:Counseling Given: Not Answered Alcohol Use Standard Drinks/Week Comments Yes 0 (1 standard drink = 0.6 oz pur e alcohol) occasionally Area Deprivation Index Answer Date Darryn rded National Score (1-100), lower number is lower ri sk 88 08/09/2022 State Score (1-10), lower number is lower risk 8 08/09/2022 Data from: https://www.neighborhoodatlas.medicine.[facility].edu/. Last address used for calculation [address] [facility] [address] 08/09/2022 Comments No Sex and Gender Information Value Date Recorded Sex Assigned at Not on file Legal Sex Female 9:37 AM EST Gender Identity Not on file Sexual Orientation Not on file Last Filed Vital Signs Vital Sign Reading Time Taken Comments Blood Pressure 116/65 08/09/2022 1:55 PM EDT Pulse 103 08/09/2022 1:55 PM EDT Temperature 36.6 C (97.8 F) 08/09/2022 1:55 PM EDT Respiratory Rate 16 02/18/2014 10:43 AM EST Oxygen Saturation 98% 08/09/2022 1:55 PM EDT Inhaled Oxygen Concentration - - Weight 91.9 kg (202 lb 9.6 oz) 08/09/2022 1:55 P M EDT Height 165.1 cm (5' 5 ) 08/09/2022 1:55 PM EDT Body Mass Index 33.71 08/09/2022 1:55 PM EDT Plan of Treatment Health Maintenance Due Date Last Done Comments Annual PCP Team Chronic Dise ase Visit 1982 Anxiety Screening 1982 Depression Screening 1982 HIV Screening 1982 Cervical Cancer Screening [address] M[address] Colonography 2009 Cologuard (FIT-DNA) 2009 Colonoscopy 2009 Colorectal Cancer Screening 2009 Fecal Occult Blood 2009 Sigmoidoscopy 2009 Pneumococcal Vaccine: 50+ (1 of 1 - PCV) 2014 Shingrix Vaccine (1 of 2) 2014 Lipid Screening 11/28/2023 11/27/2018, 06/01/2017 Influenza Vaccine (#1) 2024 9, 01/31/2018, 01/19/2016 Diabetes Screening 08/21/2025 08/21/2022, 0 07/31/2022, 04/24/2022, Additional history exists DTaP,Tdap,Td Vaccine (2 - Td or Tdap) 05/12/2029 05/12/2019 Hepatitis C Screening Completed 08/21/2022, 023 Medical Devices Implanted Type Area Spring Former Machine Device Identifier Shelf Expiration Date Model / Serial / Lot [id number] Implant - [id number] Implanted:Qty: 1 on 04/18/2011 at [facility] Implant Left: Foot [employer] 12/16/2012 [id number] / [id number] -[id number] / [id number] Description:[employer] ACHILLES SUTURE BRIDGE CONVENIENCE PACK Procedures Procedure Name Priority Date/Time Associated Diagnosis Comments HEP REMOTE PANEL BL Routine 08/21/2022 2:25 PM EDT Liver disease Esophageal varices without bleeding, unspecified esophageal varices type (HCC) Portal hypertension (HCC) BASIC METABOLIC PANEL Routine 08/21/2022 2:25 PM EDT Liver disease Esophageal varices without bleeding, unspecified esophageal varices type (HCC) Portal hypertension (HCC) LIPID PANEL, FASTING Routine 11/27/2018 12:02 PM EDT Mixed hyperlipidemia from Last 3 Months or Most Recently Relevant to Health Maintenance Results * (ABNORMAL) BASIC METABOLIC PNL (08/21/2022 2:25 PM EDT) Glucose 262(H) 74 - 99 mg/dL 08/21/2022 3:04 PM EDT [facility] Comment: The [place] Diabetes Association (ADA) provides guidance for cutoff values for fasting glucose and random glucose. The ADA defines fasting as no caloric intake for at least 8 hours. Fasting plasma glucose results between 100 to 125 mg/dL indicate increased risk for diabetes (prediabetes). Fasting plasma glucose results greater than or equal to 126 mg/dL meet the criteria for diagnosis of diabetes. In the absence of unequivocal hyperglycemia, results should be confirmed by repeat testing. In a patient with classic symptoms of hyperglycemia or hyperglycemic crisis, random plasma glucose results greater than or equal to 200 mg/dL meet the criteria for diagnosis of diabetes. Reference: Standards of Medical Care in Diabetes 2016, [place] Diabetes Association. Diabetes Care. 2016.39(Suppl 1). BUN 20 7 - 21 mg/dL 08/21/2022 3:04 PM EDT [facility] Creatinine 0.91 0.58 - 0.96 mg/dL 08/21/2022 3:04 PM EDT [facility] Sodium 139 136 - 144 mmol/L 08/21/2022 3:04 PM EDT [facility] Potassium 4.3 3.7 - 5.1 mmol/L 08/21/2022 3:04 PM EDT [facility] Chloride 104 97 - 105 mmol/L 08/21/2022 3:04 PM EDT [facility] CO2 25 22 - 30 mmol/L 08/21/2022 3:04 PM EDT [facility] Anion Gap 10 9 - 18 mmol/L 08/21/2022 3:04 PM EDT [facility] Calcium, Total 8.9 8.5 - 10.2 mg/dL 08/21/2022 3:04 PM EDT [facility] Estimated Glomerular Filtration Rate 74 >=60 mL/min/1.7 3m 08/21/2022 3:04 PM EDT [facility] Comment:Estimated Glomerular Filtration Rate (eGFR) is calculated using the 2020 CKD-EPI creatinine equation. This equation utilizes serum creatinine, sex, and age as parameters. The creatinine assay has traceable calibration to isotope dilution- mass spectrometry. Refer to KDIGO guidelines for clinical interpretation. In patients with unstable renal function, e.g. those with acute kidney injury, the eGFR may not accurately reflect actual GFR. Blood BLOOD SPECIMEN / Unknown Venipuncture / Unknown 08/21/2022 2:25 PM EDT 08/21/2022 2:25 PM EDT us Enma Milian AREA CAPTAIN.REAR LOAD TRUCK DRIVER LABORATORY Final Result [facility] [address] [place] [address], * LIPID PANEL BASIC (11/27/2018 12:02 PM EDT) Cholesterol, Total 176 <200 mg/dL 11/27/2018 7:29 PM EDT [facility] Comment: <200 mg/dL, Desirable 200-239 mg/dL, Borderline high >239 mg/dL, High Triglyceride 56 <150 mg/dL 11/27/2018 7:29 PM EDT [facility] Comment: <150 mg/dL, Normal 150-199 mg/dL, Borderline high 200-499 mg/dL, High >499 mg/dL, Very high HDL Cholesterol 72 >39 mg/dL 7:29 PM EDT [facility] Comment: 40-59 mg/dL, Acceptable >59 mg/dL, High: Negative risk factor for coronary heart disease <40 mg/dL, Low: Positive risk factor for coronary heart disease LDL Cholesterol, Calculated 93 <100 mg/dL 11/27/2018 7:29 PM T [facility] Comment: <100 mg/dL, Optimal 100-129 mg/dL, Near optimal/above optimal 130-159 mg/dL, Borderline high 160-189 mg/dL, High >189 mg/dL, Very high Secondary prevention optimal LDL Cholesterol levels are recommended to be < 70 mg/dL Non HDL Cholesterol 104 <130 mg/dL 11/27/2018 7:29 PM EDT [facility] Comment: <130 mg/dL, Optimal 130-159 mg/dL, Near optimal/above optimal 160-189 mg/dL, Borderline high 190-219 mg/dL, High >219 mg/dL, Very high Secondary prevention optimal non HDL Cholesterol levels are recommended to be < 100 mg/dL Fasting Time Unknown hrs 11/27/2018 7:29 PM EDT [facility] VLDL Cholesterol 11 <30 mg/dL 11/28/19 19 7:29 PM EDT [facility] TC:HDL Ratio 2.44 <5.10 11/27/2018 7:29 PM EDT [facility] LDL:HDL Ratio 1.29 <2.54 11/27/2018 7:29 PM EDT [facility] Comment: Reference: 1. National Cholesterol Education Program ATP III Guideline At-A-Glance Quick Desk Reference: National Heart, Lung, and Blood Ellis. National Institutes of Health. 2001: NIH Publication No. 01-3305. 2. An International Atherosclerosis Society position paper: global recommendations for the management of dyslipidemia: executive summary, Atherosclerosis. 2014: 232(2):410-413. Blood specimen (specimen) BLOOD SPECIMEN / Unknown 11/27/2018 12:02 PM EDT 11/27/2018 12:04 PM EDT Tal Mendosa DO LABORATORY Final Result [facility] [address] [place] [address] [facility] [address] [place] [address] from Last 3 Months or Most Recently Relevant to Health Maintenance Insurance [facility] [place] [address] [place] [id number] Care Teams Irrigation Tax Assessor Collector Relationship Specialty Start Date End Date Cheo Govea DO PCP - General Family Medicine 09/26/13 Tal Mendosa DO Primary Staff Physician Cardiology 06/04/18
--- OUTSIDE RECORDS SUMMARY | 2024-10-17 13:51 | XMS_ITS | Encounter Summary ---
Author Organization [facility] Address [address] [place] [address] Phone Care Team Providers Care Independent Contractor Name Role Phone Judy Wang APRN-DESIGN LEAD Primary Care P rovider Sonia Parker QUALITY CONTROL CLERK-DESIGN LEAD Primary Care Provider + Encounter Details Date Type Department Care Team (Late st Contact Info) Description 08/15/2021 Orders Only [facility] [address] [place] [address] Conversion, Onbase Social History Tobacco Use Types Packs/Day Years [...] Description 10/28/2024 2:30 PM EDT Office Visit [facility] [address] [address] Tiffanie Caldera APRN-DESIGN LEAD 703 [facility] 2, [facility] [address] [place] [address] Scheduled Orders Name Type Priority Associated Diagnoses Orde r Schedule OUTSIDE LAB SCAN Lab Ordered: 08/15/2021 documented as of this encounter Visit Diagnoses Not on filedocumented in this encounter Care Teams Independent Contractor Relationship Specialty Start Date End Date Judy Wang APRN-CNP [address] [place] [address] PCP - General 09/12/21 06/25/24 Sonia Parker, QUALITY CONTROL CLERK-DESIGN LEAD [address] [place] [address] PCP - General 06/26/24 documented as of this encounter
--- OUTSIDE RECORDS SUMMARY | 2024-10-17 13:51 | XMS_ITS | Encounter Summary ---
Author Organization [facility] Address [address] [place] [address] Phone Care Team Providers Care Grief Counsellor Name Role Phone Judy Wang APRN-BROWN STOCK WASHER Primary Care P rovider Sonia Parker INKER AND OPAQUER-BROWN STOCK WASHER Primary Care Provider + Encounter Details Date Type Department Care Team (Late st Contact Info) Description 10/05/2021 Orders Only [facility] [address] [place] [address] Conversion, Onbase Social History Tobacco Use Types [...] Description 10/28/2024 2:30 PM EDT Office Visit [facility] [address] [address] Tiffanie Caldera APRN-BROWN STOCK WASHER 703 [facility] 2, [place] [place] [address] Scheduled Orders Name Type Priority Associated Diagnoses Orde r Schedule OUTSIDE LAB SCAN Lab Ordered: 10/05/2021 documented as of this encounter Visit Diagnoses Not on filedocumented in this encounter Care Teams Grief Counsellor Relationship Specialty Start Date End Date Judy Wang APRN-CNP [address] [place] [address] PCP - General 09/12/21 06/25/24 Sonia Parker, INKER AND OPAQUER-BROWN STOCK WASHER [address] [place] [address] PCP - General 06/26/24 documented as of this encounter
--- OUTSIDE RECORDS SUMMARY | 2024-10-17 13:51 | XMS_ITS | Encounter Summary ---
Author Organization [facility] Address [address] [place] [address] Care Team Providers Care Vessel Scrapper Name Role Phone Cheo Govea DO Primary Care Provider [phone] DeondreTal Unavailable [phone] Source Comments In the event this information is protected by the Federal Confidentiality of Alcohol and Drug AbusePatient Records regulations: The Federal rules restrict any use of the information to criminally investigate or prosecute any alcohol or drug abuse patient.[facility] Encounter Details Date Type Department Care Team (Late st Contact Info) Description 08/30/2022 Patient Msg Gastroenterology [address] [address] Enma Milian APRN.SUPERVISOR KENNEL [address] [place] [address] Results Social History Tobacco Use Types Packs/Day Years Used Date Smoking Tobacco: Never Smokeless Tobacco: Never Alcohol Use Standard Drinks/Week Comments Yes 0 (1 standard drink = 0.6 oz pur e alcohol) occasionally Area Deprivation Index Answer Date Darryn rded National Score (1-100), lower number is lower ri [facility] 08/09/2022 State Score (1-10), lower number is lower risk 8 08/09/2022 Data from: https://www.neighborhoodatlas.[facility]/. Last address used for calculation [address] 08/09/2022 Comments No Sex and Gender [...] Nahed Arora MA * Do you have serious difficulty [...] documented as of this encounter Visit Diagnoses Diagnosis Liver disease- Primary Unspecified disorder of liver Vitamin D deficiency Unspecified vitamin D deficiency documented in this encounter Care Teams Vessel Scrapper Relationship Specialty Start Date End Date Cheo Govea DO PCP - General Family Medicine 09/26/13 Tal Mendosa DO Primary Staff Physician Cardiology 06/04/18 documented as of this encounter
--- OUTSIDE RECORDS SUMMARY | 2024-10-17 13:51 | XMS_ITS | Clinical Summary ---
Author Organization [facility] Address [address] [place] [address] Phone Care Team Providers Care Online Advertising Director Name Role Phone Sonia Parker FISH SALTER-CAN TENDER Primary Care Provider + Allergies No known active allergies Medications metFORMIN (Glucophage) 1,000 mg tablet Take 1 tablet (1,000 mg) by mouth 2 times daily (morning and late afternoon). Active atorvastatin (Lipitor) 20 mg tablet Take 1 tablet (20 mg) by mouth once daily. 03/15/20 Active busPIRone (Buspar) 10 mg tablet Take 1 tablet (10 mg) by mouth 2 times a day. 03/15/20 Active Vitamin D3 25 mcg (1,000 unit) capsule Take 1 capsule (25 mcg) by mouth early in the morning.. 04/24/19 25 Active carvedilol (Coreg) 6.25 mg tablet Take 1 tablet (6.25 mg) by mouth 2 times a day. Active Farxiga 10 mg tablet Take 1 tablet (10 mg) by mouth once daily. 03/15/20 Active Trulicity 1.5 mg/0.5 mL pen injector injection Inject 1.5 mg under the skin 1 (one) time per week. Active esomeprazole (NexIUM) [address] capsule Take 1 capsule (40 mg) by mouth once daily. 07/13/19 Active Lantus Solostar U-100 Insulin 100 unit/mL (3 mL) pen INJECT 34 UNITS SUBCUTANEOUSLY ONCE DAILY for 50 days 03/15/20 Active lactulose 10 gram/15 mL solution Take 30 mL (20 g) by mouth 3 times a day. Active Xifaxan 550 mg tablet Take 1 tablet (550 mg) by mouth every 12 hours. 04/24/19 25 Active traZODone (Desyrel) 50 mg tablet Take 1 tablet (50 mg) by mouth once daily at bedtime. 02/12/20 24 Active spironolactone (Aldactone) 25 mg tabletIndication s:Hypervolemia, unspecified hypervolemia type,Cirrhosis of liver with ascites, unspecified hepatic cirrhosis type (Multi) Take 1 tablet (25 mg) by mouth once daily. 30 tablet 11 06/27/19 25 Active furosemide (Lasix) 40 mg tabletIndication s:Hypervolemia, unspecified hypervolemia type,Cirrhosis of liver with ascites, unspecified hepatic cirrhosis type (Multi) Take 1 tablet (40 mg) by mouth once daily. 30 tablet 11 5 3:10 PM EDT 06/27/19 Active Active Problems Problem Noted Date Diagnosed Date Diabetes mellitus with no complication Volume overload 06/26/2024 Cirrhosis of liver with ascites (Multi) 06/27/19 Portal hypertension (Multi) 06/26/2024 BMI 32.0-32.9,adult 06/26/2024 Palpitations 06/26/2024 Hyperlipemia 06/26/2024 Encounters Date Type Department Care Team Description 10/02/2024 Scanned Document [facility] [address] [place] [address] Scanning, Generic Provider from Last 3 Months Immunizations Immunization Administration Dates Next Due Flu vaccine, trivalent, pres ervative free, HIGH-DOSE, age 65y+ (Fluzone) 01/19/2016 Flu vaccine, trivalent, pres ervative free, age 6 months and greater (Fluarix/Fluzone/Flulaval) 12/26/2023 Influenza, injectable, quadrivalent 05/10/2023 Influenza, seasonal, injectable 11/28/2018,01/31 Family History Medical History Relation Name Comments Heart failure Father Heart failure Mother Relation Name Status Comments Father Mother Social History Tobacco [...] Sign Reading Time Taken Comments Blood Pressure 112/64 06/26/2024 3:16 PM EDT Pulse 84 06/26/2024 3:16 PM EDT Temperature - - Respiratory Rate - - Oxygen Saturation - - Inhaled Oxygen Concentration - - Weight 89.4 kg (197 lb 3.2 oz) 06/26/2024 3:16 P M EDT Height 165.1 cm (5' 5 ) 06/26/2024 3:16 PM EDT Body Mass Index 32.82 06/26/2024 3:16 PM EDT Plan of Treatment Upcoming Encounters Date Type Department Care Team (Late st Contact Info) Description 10/28/2024 2:30 PM EDT Office Visit [facility] [address] [facility] [address] [place] [id number] Tiffanie Caldera, FISH SALTER-CAN TENDER [address] [facility] [address] [place] [address] Health Maintenance Due Date Last Done Comments CT Colonography 1964 Colonoscopy 1964 Colorectal Cancer Screening 1964 Creatinine Level 1964 Diabetes: Hemoglobin A1C 1964 Diabetes: Urine Protein Screening 1964 FIT-DNA (Cologuard) 1964 FIT 1964 HIV Screening 1964 Lipid Panel 1964 Potassium Level 1964 Sigmoidoscopy 1964 Yearly Adult Physical 1964 MMR Vaccines (1 of 1 - Standard series) 1965 Diabetes: Retinopathy Screening 1974 Hepatitis C Screening 1982 Hepatitis A Vaccines (1 of 2 - Risk 2-dose series) 10/22/1983 Hepatitis B Vaccines (1 of 3 - 19+ 3-dose series) 10/22/1983 Pneumococcal Vaccine (1 of 2 - PCV) 10/22/1983 Cervical Cancer Screening 1985 HPV/Cotest 1985 Pap Smear 1985 Mammogram 2004 Zoster Vaccines (1 of 2) 2014 COVID-19 Vaccine ( season) 2023 07/03/2020, 06/05/2020 Influenza Vaccine (#1) 2024 , 05/10/2023, 11/28/2018, Additional history exists Echocardiogram 10/02/2025 10/02/2024, 08/18, 08/17/2021 DTaP/Tdap/Td Vaccines (2 - Td or Tdap) 05/12/2029 05/12/2019 HIB Vaccines Aged Out No longer eligi ble based on patient's age to complete this topic HPV Vaccines Aged Out No longer eligi ble based on patient's age to complete this topic IPV Vaccines Aged Out No longer eligi ble based on patient's age to complete this topic Meningococcal Vaccine Aged Out No romulo maria eligible based on patient's age to complete this topic Rotavirus Vaccines Aged Out No longer eligible based on patient's age to complete this topic Procedures Procedure Name Priority Date/Time Associated Diagnosis Comments ECHOCARDIOGRAM 10/02/2024 from Last 3 Months Results * Echocardiogram (10/02/2024) Narrative 10/02/2024 Ordered by an unspecified provider. us Generic Provider Scanning CV ECHO PROCEDURES Fin al Result from Last 3 Months Insurance [facility] Care Teams Online Advertising Director Relationship Specialty Start Date End Date Sonia Parker, FISH SALTER-CAN TENDER [address] [place] [address] PCP - General 06/26/24
--- OUTSIDE RECORDS SUMMARY | 2024-10-17 13:51 | XMS_ITS | Encounter Summary ---
Author Organization [facility] Address [address] [place] [address] Phone Care Team Providers Care Logistics Support Name Role Phone Judy Wang APRN-PAD ASSEMBLER Primary Care P rovider Sonia Parker APRN-PAD ASSEMBLER Primary Care Provider + Encounter Details Date Type Department Care Team (Late st Contact Info) Description 03/14/2024 Scanned Document [facility] [address] [place] [address] Scanning, Generic Provider Social History [...] Description 10/28/2024 2:30 PM EDT Office Visit [place] [address] [address] Tiffanie Caldera APRN-PAD ASSEMBLER [address] [facility] 2, [facility] [address] [place] [address] documented as of this encounter Visit Diagnoses Not on filedocumented in this encounter Care Teams Logistics Support Relationship Specialty Start Date End Date Judy Wang APRN-CNP [address] [place] [address] PCP - General 09/12/21 06/25/24 Sonia Parker, LUCY-PAD ASSEMBLER [address] [place] [address] PCP - General 06/26/24 documented as of this encounter
--- OUTSIDE RECORDS SUMMARY | 2024-10-17 13:51 | XMS_ITS | Encounter Summary ---
Author Organization [facility] Address [address] [place] [address] Care Team Providers Care Incinerator Plant Supervisor Name Role Phone Luz Tarango Primary Care Provider [phone] Cheo Govea DO Primary Care Provider [phone] Tal Mendosa DO Unavailable [phone] Tal Mendosa DO Unavailable [phone] Source Comments In the event this information is protected by the Federal Confidentiality of Alcohol and Drug AbusePatient Records regulations: The Federal rules restrict any use of the information to criminally investigate or prosecute any alcohol or drug abuse patient.[facility] Encounter Details Date Type Department Care Team (Late st Contact Info) Description 04/04/2011 Abstract Ambulatory Surgery [address] [place] [address] Rose Palacios (Rn)(Hist), RN Social History Tobacco Use Types Packs/Day Years Used Date Smoking Tobacco: Never Alcohol Use Standard Drinks/Week Comments No 0 (1 standard drink = 0.6 oz pur e alcohol) Comments Unknown Sex and Gender Information Value Date Recorded Sex Assigned at Not on file Legal Sex Female 9:37 AM EST Gender Identity Not on file Sexual Orientation Not on file documented as of this encounter Nursing Notes * 04/04/2011 12:00 PM EST >> Rose Palacios, RN, RN Glenna Apr 04, 2011 9:20 AM 04/04/11 patient showed up at [facility] for surgery that was cancelled 04/03/11 per anesthesia. I consultedwith anesthesia () and was told the patient needed to be seen by her medical doctor and rescheduled for surgery.Patient became angry, and emotional stating she was told by 's office to just come in to [facility] and have her lungs listened to by anesthesia. I suggested she see her medical doctor and call Dr. Aleman after that to be rescheduled for her procedure.The patient and her left agitated stating they would get another doctor and would not be coming back here. I called Heather Mcduffie nurse utility division project manager, and Seng Mcwilliams healthcare facility administrator to call patient and try to work things out satisfactorily with the patient. documented in this encounter Plan of Treatment Not on file documented as of this encounter Visit Diagnoses Not on filedocumented in this encounter Care Teams Incinerator Plant Supervisor Relationship Specialty Start Date End Date Luz Tarango [address] [place] [address] PCP - General 04/03/11 09/25/13 Cheo Govea DO [address] [place] [phone] PCP - General Family Medicine 09/26/13 Tal Mendosa DO [address] [facility] [address] [place] [address] Primary Staff Physician Cardiology 06/04/18 Tal Mendosa DO [address] [facility] [address] [place] [id number] Primary Staff Physician Cardiology 06/04/18 documented as of this encounter
--- OUTSIDE RECORDS SUMMARY | 2024-10-17 13:51 | XMS_ITS | Encounter Summary ---
Author Organization [facility] Address [address] [place] [address] Phone Care Team Providers Care Prestidigitator Name Role Phone Judy Wang APRN-PREPARATION PLANT REPAIRER Primary Care P rovider Sonia Parker APRN-PREPARATION PLANT REPAIRER Primary Care Provider + Encounter Details Date Type Department Care Team (Late st Contact Info) Description 12/28/2023 Scanned Document [facility] [address] [place] [address] Scanning, Generic Provider Social History [...] Description 10/28/2024 2:30 PM EDT Office Visit [place] [id number] [address] Tiffanie Caldera APRN-PREPARATION PLANT REPAIRER [address] [facility] 2, [facility] [address] [place] [address] documented as of this encounter Visit Diagnoses Not on filedocumented in this encounter Care Teams Prestidigitator Relationship Specialty Start Date End Date Judy Wang APRN-CNP [address] [place] [address] PCP - General 09/12/21 06/25/24 Sonia Parker, LUCY-PREPARATION PLANT REPAIRER [address] [place] [address] PCP - General 06/26/24 documented as of this encounter
--- OUTSIDE RECORDS SUMMARY | 2024-10-17 13:52 | XMS_ITS | Patient Health Record ---
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 Name Role Phone Joni Olinda Primary Care Provider Cisco Hyde Unavailable [phone] Sonia Renee Unavailable [phone] Allergies No Known Allergies Results Component Value Reference Range Notes Hemoglobin A1c Reviewed date:01/03/2024 11:17:19 AM Interpretation:8.6 Performing Lab: Notes/Report: 8.6 Hemoglobin A1c 8.6 5 - 7.9 % XR hip RT min 2V(w/wo pelvis )* Reviewed date:01/04/2024 08:17:57 AM Interpretation: Performing Lab: Notes/Report: [facility] Main [address] [address] XRay Report Signed Patient: Tania Tomlinson MR#: [id number] : 1965 Acct:[id number] Age/Sex: 58 / F ADM Date: 01/03/24 Loc: XD Room: Type: [facility] Attending Dr: EVELINE Montgomery APRN Copies to: Sonia Parker APRN, NP-C Ordering Provider: Sonia Parker APRN, NP-C Date of Service: 01/03/24 XR/XR hip RT min 2V(w/wo pelvis)*: Right hip pain RIGHT HIP - 2 views: CLINICAL HISTORY: Right posterior lateral hip pain chronically. No reported injury. Comparison: 05/12/[address] 12/25/2023 COMPARISON: None AP and frog-lateral views were obtained. There is no evidence of fracture or dislocation. The hip joint space is maintained. There is no prominent hypertrophy at the hip. There are enthesophytes at the iliac crest and greater trochanter. There are no significant soft tissue abnormalities. XR/XR hip RT min 2V(w/wo pelvis)* IMPRESSION: NO ACUTE BONY FINDINGS. Impression dictated by: Heather Olivas M.D.01/03/2024 5:06 PM Dictation Location: RADIO-PC-14 Transcribed By: [facility] 01/03/241705 Dictated By: Heather Olivas MD 01/03/241699 Signed By: <Electronically signed by MD Heather Olivas in OV> 01/03/241705 Hemoglobin A1c Reviewed date:04/15/2024 10:43:42 AM Interpretation:5.4 Performing Lab: Notes/Report: 5.4 Hemoglobin A1c 5.4 5 - 7.9 % Hemoglobin A1c Reviewed date:07/14/2024 04:15:27 PM Interpretation:8.8 Performing Lab: Notes/Report: 8.8 Hemoglobin A1c 8.8 5 - 7.9 % Reason For Referral No Information Medications Medication SIG (Take, Route, Frequency, Duration) Notes Start Date End Date Status Trulicity 1.5 MG/0.5ML Subcutaneous; Duration: 28 Days 11/13/2024 Active Farxiga 10 mg TAKE 1 TABLET BY MOUTH ONCE DAILY 30 days; Duration: 30 Active Carvedilol 6.25 mg TAKE 1 TABLET BY MOUTH TWICE DAILY WITH FOOD; Duration: 30 Active Dexcom G7 Sensor - as directed as directed; Duration: 30 days 09/27/2022 Active Furosemide 40 MG 1 tablet Orally Once a day Active metFORMIN HCl 1000 MG TAKE 1 TABLET BY MOUTH TWICE DAILY WITH MEALS; Duration: 30 Active Vitamin D3 25 MCG (1000 UT) 1 capsule Orally Once a day; Duration: 30 days Active Esomeprazole Magnesium 40 MG TAKE 1 CAPSULE BY MOUTH ONCE DAILY; Duration: 30 days Active busPIRone HCl 10 mg TAKE 1 TABLET BY MOUTH TWICE DAILY 30 days; Duration: 30 Active Lactulose 20 GM/30ML 15 mL as needed Orally Once a day Active Atorvastatin Calcium 20 MG TAKE 1 TABLET BY MOUTH DAILY; Duration: 30 days Active Lantus SoloStar 100 UNIT/ML INJECT 34 UNITS SUBCUTANEOUSLY ONCE DAILY; Duration: 50 days Active Spironolactone 100 MG 1 tablet Orally daily; Duration: 30 days placed on hold Active Dexcom G7 Computational Chemist - as directed 05/10/2023 Active Easy Touch Lancets 28G - USE DIRECTED ONCE DAILY; Duration: 100 Active Magnesium 250 MG 1 tablet with a meal Orally twice a day; Duration: 30 days Active Xifaxan 550 MG 1 tablet Orally Twic e a day; Duration: 30 days Active Pen [place] 08/01 31G X 8 MM as directed once a day; Duration: 30 days 07/31/2022 Active Blood Pressure Monitor - as directed 02/20/2024 Active Ondansetron HCl 8 MG 1 tablet as needed Orally Once a day; Duration: 30 days 03/07/2024 Active Immunizations Vaccine Route Administration Date Status Comme [facility] Influenza 3+ PRIVATE IM Intramuscular 05/10/2023 Administe red Influenza-Adult IM Intramuscular 01/31/2018 Administered Influenza-Adult IM Intramuscular 11/28/2018 Administered MODERNA IM Intramuscular 06/05/2020 Administered MODERNA IM Intramuscular 07/03/2020 Administered zzz do not use FLUARIX 3 YRS AND OLDER Adult IM Intramuscular 01/19/2016 Administered Social History Tobacco Use: Social History Observation Description Date Details (start date - stop date) Never Smoker NA - NA Sex Assigned At : Social History Observation Description Sex Assigned At Female Sexual Hx: Question Answer Notes Had sex in the last 12 months (vaginal, oral, or anal)? No Have you ever had an STD? No PRAPARE Question Answer Notes Date Completed/Updated: 09/05/2021 What is your current housing situation? I have h ousing Are you worried about losing your housing? No What is the highest level of school that you have finished? 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 Check all that apply I do not have problems meeting my needs Has lack of transportation k ept you from medical appointments, meetings, work or from getting things needed for daily living? No How often do you see or talk to people that you care about and feel close to? (For example: talking to friends on the phone, visiting friends or family, going to lutheran or club meetings) 1 or 2 times a week How stressed are you? Stress is when someone feels tense, nervous, anxious, or cant sleep at night because their mind is troubled Somewhat In the past year have you sp ent more than 2 nights in a row in a mcfp, usp, fdc center, or juvenile correctional facility? No Are you a refugee? No What country are you from? [place] Do you feel physically and e motionally safe where you currently live? Yes In the past year, have you b een afraid of your partner or ex-partner? I have not had a partner in the past year PRAPARE Score: 6 AUDIT-C (Standard) Question Answer Notes Did you have a drink containing alcohol in the p ast year? No Points 0 Interpretation Negative Tobacco Control (Standard) Question Answer Notes Tobacco use: Nonsmoker Section Notes: 02-05-12: DENIES TOBACCO USE . SELDOM ETOH. DENIES ILLEGAL DRUG USE. 02-05-12: DENIES TOBACCO USE . SELDOM ETOH. DENIES ILLEGAL DRUG USE. 02-05-12: DENIES TOBACCO USE . SELDOM ETOH. DENIES ILLEGAL DRUG USE. 02-05-12: DENIES TOBACCO USE . SELDOM ETOH. DENIES ILLEGAL DRUG USE. 02-05-12: DENIES TOBACCO USE . SELDOM ETOH. DENIES ILLEGAL DRUG USE. 02-05-12: DENIES TOBACCO USE . SELDOM ETOH. DENIES ILLEGAL DRUG USE. 02-05-12: DENIES TOBACCO USE . SELDOM ETOH. DENIES ILLEGAL DRUG USE. 02-05-12: DENIES TOBACCO USE . SELDOM ETOH. DENIES ILLEGAL DRUG USE. 02-05-12: DENIES TOBACCO USE . SELDOM ETOH. DENIES ILLEGAL DRUG USE. 02-05-12: DENIES TOBACCO USE . SELDOM ETOH. DENIES ILLEGAL DRUG USE. 02-05-12: DENIES TOBACCO USE . SELDOM ETOH. DENIES ILLEGAL DRUG USE. 03/11/15: Denies tobacco, quit ETOH and denies illegal drug use. 02-05-12: DENIES TOBACCO USE. SELDOM ETOH. DENIES ILLEGAL DRUG USE. 03/11/15: Denies tobacco, quit ETOH and denies illegal drug use. 02-05-12: DENIES TOBACCO USE. SELDOM ETOH. DENIES ILLEGAL DRUG USE. 03/11/15: Denies tobacco, quit ETOH and denies illegal drug use. 02-05-12: DENIES TOBACCO USE. SELDOM ETOH. DENIES ILLEGAL DRUG USE. 03/11/15: Denies tobacco, quit ETOH and denies illegal drug use. 02-05-12: DENIES TOBACCO USE. SELDOM ETOH. DENIES ILLEGAL DRUG USE. 03/11/15: Denies tobacco, quit ETOH and denies illegal drug use. 02-05-12: DENIES TOBACCO USE. SELDOM ETOH. DENIES ILLEGAL DRUG USE. 03/11/15: Denies tobacco, quit ETOH and denies illegal drug use. 02-05-12: DENIES TOBACCO USE. SELDOM ETOH. DENIES ILLEGAL DRUG USE. 03/11/15: Denies tobacco, quit ETOH and denies illegal drug use. 02-05-12: DENIES TOBACCO USE. SELDOM ETOH. DENIES ILLEGAL DRUG USE. 03/11/15: Denies tobacco, quit ETOH and denies illegal drug use. 02-05-12: DENIES TOBACCO USE. SELDOM ETOH. DENIES ILLEGAL DRUG USE. 03/11/15: Denies tobacco, quit ETOH and denies illegal drug use. 02-05-12: DENIES TOBACCO USE. SELDOM ETOH. DENIES ILLEGAL DRUG USE. 02-05-12: DENIES TOBACCO USE . SELDOM ETOH. DENIES ILLEGAL DRUG USE. Problems Problem Type SNOMED Code ICD Code Onset Dates Problem Status W/U Status Risk Notes Problem Essential hypertension (57562745) Essential (primary) hypertension (I10) Active confirmed Problem Heart failure (79929734) Heart failure, unspecified (I50.9) Active confirmed Problem Portal hypertension (49674249) Portal hypertension (K76.6) Active confirmed Problem Anxiety (10347673) Anxiety (F41.9) Active confi rmed Problem Anemia (741964229) Anemia (D64.9) Active confir med Problem Gastroesophageal reflux disease (787023445) GERD (gastroesophageal reflux disease) (K21.9) Active confirmed Problem Depression (446498605) Depression (F32.9) Active confirmed Problem Osteoarthritis (015948277) Osteoarthritis (M19.90) Active confirmed Problem Carpal tunnel syndrome (09904596) Carpal tunnel syndrome (G56.00) Active confirmed Problem Hyperlipidaemia (03197656) Hyperlipidemia LDL goal <100 (E78.5) Active confirmed Problem Type II diabetes mellitus well controlled (080906903) Diabetes mellitus type 2, controlled (E11.9) Active confirmed Problem Cardiomyopathy (66129074) Cardiomyopathy (I42.9) Active confirmed Problem Constipation (96327065) Constipation, unspecified constipation type (K59.00) Active confirmed Problem Alcoholic cirrhosis (169835050) Cirrhosis, alcoholic (K70.30) Active confirmed Problem Sleep disturbance (47733580) Sleep disturbance (G47.9) Active confirmed Problem Amnesia (62207494) Memory change (R41.3) Active confirmed Problem Alcoholic cirrhosis (160008658) Alcoholic cirrhosis, unspecified whether ascites present (K70.30) Active confirmed Problem Splenomegaly (90866864) Splenomegaly (R16.1) Active confirmed Problem Hypoglycemia due to type 2 diabetes mellitus (378437879201998) Hypoglycemia associated with type 2 diabetes mellitus (E11.649) Active confirmed Problem Hepatic encephalopathy (46840753) Hepatic encephalopathy (K76.82) Active confirmed Problem Thrombocytopenic disorder (941048863) Low platelet count (D69.6) Active confirmed Vital Signs Heart Rate 69 /min 10/11/2024 Temperature 98.1 degrees Fahrenheit 10/11/2024 Respiratory Rate 18 /min 10/11/2024 Oximetry 98 % 10/11/2024 Blood pressure diastolic 66 mm Hg 10/11/2024 Height 64.5 in 10/11/2024 Blood pressure systolic 101 mm Hg 10/11/2024 Weight 192.8 lbs 10/11/2024 BMI 32.58 kg/m2 10/11/2024 Encounters Encounter Location Date Provider Diagnosis [facility] [address] [place] [address] [facility] [address] [place] [address] [facility] [address] [place] [address] [facility] [address] [place] [address] 02/19/2024 Sonia padmaClinton Diabetes mellitus ty pe 2, controlled E11.9 [facility] [address] [place] [address] 03/31/2024 Sonia shayleeJhoana [facility] [address] [place] [address] 10/16/2024 Olinda Joni Diabetes mellitus ty pe 2, controlled E11.9 [facility] [address] [place] [address] 10/16/2024 Olinda Joni [facility] [address] [place] [address] 04/08/2024 Sonia Renee Diabetes mellitus ty pe 2, controlled E11.9 [facility] [address] [facility] [place] [address] 11/05/2023 Cisco Hyde Lower extremity tegan a R60.0 [facility] [address] [facility] [place] [address] 06/23/2024 Olinda Quinones Edema of both lower legs R60.0 [facility] [address] [place] [address] 03/14/2024 Sonia padmaKeith Hepatic encephalopat hy K76.82 ; Cirrhosis, alcoholic K70.30 ; Osteoarthritis M19.90 ; Pathological fracture in other disease, other site, initial encounter for fracture M84.68XA and Left hip pain M25.552 [facility] [address] [place] [address] 01/03/2024 Sonia rouseKeith Right hip pain M25.5 51 ; Diabetes mellitus type 2, controlled E11.9 ; Essential (primary) hypertension I10 ; Cardiomyopathy I42.9 ; Memory change R41.3 ; GERD (gastroesophageal reflux disease) K21.9 ; Anxiety F41.9 and Hyperlipidemia LDL goal <100 E78.5 [facility] [address] [place] [address] 01/22/2024 Sonia Renee Acute bilateral low back pain without sciatica M54.50 [facility] [address] [place] [address] 02/20/2024 Sonia Renee Essential (primary) hypertension I10 ; Closed fracture of fourth lumbar vertebra with routine healing, unspecified fracture morphology, subsequent encounter S32.049D ; Other low back pain M54.59 and Pathological fracture in other disease, other site, initial encounter for fracture M84.68XA [facility] [address] [place] [address] 10/11/2024 Olinda Quinones Diabetes mellitus ty pe 2, controlled E11.9 ; Essential (primary) hypertension I10 ; Heart failure, unspecified I50.9 ; Cirrhosis, alcoholic K70.30 ; Cardiomyopathy I42.9 and History of recent hospitalization Z92.89 [facility] [address] [place] [address] 07/14/2024 Sonia Jerrykaren Essential (primary) hypertension I10 ; Diabetes mellitus type 2, controlled E11.9 ; Anxiety F41.9 ; Heart failure, unspecified I50.9 and Alcoholic cirrhosis, unspecified whether ascites present K70.30 [facility] [address] [place] [address] 03/07/2024 Sonia padmaAlfredalexxena Nausea R11.0 ; Close d fracture of fourth lumbar vertebra with routine healing, unspecified fracture morphology, subsequent encounter S32.049D and Essential (primary) hypertension I10 [facility] [address] [place] [address] 04/15/2024 Sonia juneryderKeith Diabetes mellitus ty pe 2, controlled E11.9 ; Essential (primary) hypertension I10 and Other low back pain M54.59 Assessments Encounter Date Diagnosis (ICD Code) Assessment Notes Treatment Notes Treatment Clinical Notes Section Notes 01/03/2024 Right hip pain (ICD-10 - M25.551) Toradol injection in office today. Will get imaging today, will contact patient with results and next steps. Patient verbalized understanding, in agreement with plan. 01/22/2024 Acute bilateral low back pain without sciatica (ICD-10 - M54.50) Patient appeared extremely distressed in office today, frequently crying out in pain, unable to sit in chair, needed to be lying down. Was disoriented at times, repeating the same phrase over and over again, incorrect date and time on questioning. Due to concern for patient's safety and inability to make it home on her own, squad was called and patient was transported to ER. 02/20/2024 Essential (primary) hypertension (ICD-10 - I10) BP stable today, will continue to hold antihypertensives at this time. Patient does have follow up scheduled with cardiology at the end of the month. 03/07/2024 Nausea (ICD-10 - R11.0) Pt will be prescribed Zofran (Ondansetron) Hcl 8mg and educated on taking medication and s/e, can cause constipation. Avoid triggering foods, moderate fluid intake of cold liquids. Recommended to call if symptoms persist or worsen. 03/14/2024 Hepatic encephalopathy (ICD-10 - K76.82) Encouraged patient to keep upcoming appt with GI, per hospital documentation they were able to get insurance approval for Xifaxan. 07/14/2024 Essential (primary) hypertension (ICD-10 - I10) Patient has acceptable blood pressure control at this visit. Patient is instructed to continue blood pressure medication regimen as directed. Patient denied chest pain, palpitations, HOFFMANN, vision changes, syncope or dizziness at today's appointment. Educated patient to continue low salt/caffeine intake and encouraged exercise. Pt verbalized understanding. 03/14/2024 Cirrhosis, alcoholic (ICD-10 - K70.30) Continue to follow with GI, continue medication regimen, avoid alcohol. 06/23/2024 Edema of both lower legs (ICD-10 - R60.0) Bumex 1 mg daily for 4 days. Instructed patient to change positions slowly and monitor her blood pressure. Patient missed her cardiology appointment recently. Instructed patient to call and reschedule with cardiology. Patient instructed to go to the ER if she develops SOB, dyspnea or chest pain. Patient verbalizes understanding. All questions and concerns addressed. Follow up in 1 month. 07/14/2024 Diabetes mellitus type 2, controlled (ICD-10 - E11.9) AIC is above goal of 7.0. Discussed lifestyle changes that can contribute to increased blood glucose. Encouraged exercise, protein and fiber sources with each meal, carb counting. If A1C does not improve by next check, may consider medication adjustment. Continue home monitoring of blood sugars; if less than 70 or greater than 450 go to the ER. Pt encouraged to have annual eye exams as well as routine foot care and checks with podiatry, if you develop any sores/concern RTO. 10/11/2024 Essential (primary) hypertension (ICD-10 - I10) 04/08/2024 Diabetes mellitus type 2, controlled (ICD-10 - E11.9) 04/15/2024 Essential (primary) hypertension (ICD-10 - I10) Patient has acceptable blood pressure control at this visit. Patient is instructed to continue blood pressure medication regimen as directed. Patient denied chest pain, palpitations, HOFFMANN, vision changes, syncope or dizziness at today's appointment. Educated patient to continue low salt/caffeine intake and encouraged exercise. Pt verbalized understanding. 04/15/2024 Diabetes mellitus type 2, controlled (ICD-10 - E11.9) DM stable. Will continue current medication. F/U 3 months & PRN 10/11/2024 Diabetes mellitus type 2, controlled (ICD-10 - E11.9) 10/16/2024 Diabetes mellitus type 2, controlled (ICD-10 - E11.9) 02/19/2024 Diabetes mellitus type 2, controlled (ICD-10 - E11.9) 02/20/2024 Closed fracture of fourth lumbar vertebra with routine healing, unspecified fracture morphology, subsequent encounter (ICD-10 - S32.049D) Will send order for DEXA bone density test. Will call pt with results and treat accordingly for osteoporosis or osteopenia. Discussed the importance of proper intake of calcium and vitamin D. Pt verbalized understanding. 01/03/2024 Diabetes mellitus type 2, controlled (ICD-10 - E11.9) AIC is above goal of 7.0. Discussed lifestyle changes that can contribute to increased blood glucose. Encouraged exercise, protein and fiber sources with each meal, carb counting. At this time will increase Trulicity to 1.5mg weekly. Discussed risks and side effects of medication. Continue home monitoring of blood sugars; if less than 70 or greater than 450 go to the ER. Pt encouraged to have annual eye exams as well as routine foot care and checks with podiatry, if you develop any sores/concern RTO. 11/05/2023 Lower extremity edema (ICD-10 - R60.0) Patient with history of heart failure and cirrhosis presenting with bilateral lower extremity edema that started acutely yesterday. He is improving some. She is having no other signs or symptoms or exam findings consistent with flare of either of these conditions. We did discuss use of bumetanide for the next 3 days for diuresis. Signs and symptoms that would warrant going to the nearest ER or calling 911 were discussed. Signs symptoms to return to clinic were discussed. Patient was advised to continue with her furosemide, unless she is having further issues after completion of her bumetanide. 01/03/2024 Essential (primary) hypertension (ICD-10 - I10) BP is above goal of >140/90. Encouraged to monitor BP at home, keep a log, if >180/90 RTO, if >200/100 with HOFFMANN, visual changes, NV, chest pain or pressure go to the ER. Encouraged moderate exercise and a low salt diet. Discussed if BP continued to be elevated we will consider medication management. Patient verbalized understanding. 03/07/2024 Essential (primary) hypertension (ICD-10 - I10) Patient has acceptable blood pressure control at this visit. Patient is instructed to continue blood pressure medication regimen as directed. Patient denied chest pain, palpitations, HOFFMANN, vision changes, syncope or dizziness at today's appointment. Educated patient to continue low salt/caffeine intake and encouraged exercise. Pt verbalized understanding. 02/20/2024 Other low back pain (ICD-10 - M54.59) Conitnue HEP from recent surgery. We can place referral for outpatient PT if patient is interested in this in the future. Follow up in 2 weeks to assess ability to return to work/normal activities. 07/14/2024 Anxiety (ICD-10 - F41.9) Anxiety stable. Will continue current medication. F/U 3 months & PRN 04/15/2024 Other low back pain (ICD-10 - M54.59) Patient OK to return to work without restrictions at this time. 03/07/2024 Closed fracture of fourth lumbar vertebra with routine healing, unspecified fracture morphology, subsequent encounter (ICD-10 - S32.049D) Patient reports healing is going well, is planning to return to work on 03/17/24. Letter written with limitations for work and return to work date. 03/14/2024 Osteoarthritis (ICD-10 - M19.90) Patient recommended to start cholecalciferol (vitamin D3) at 1000 units daily. Also encouraged to increase sun exposure and increase calcium intake either through dietary sources like cheese and leafy greens or through a calcium supplement. 10/11/2024 Heart failure, unspecified (ICD-10 - I50.9) 07/14/2024 Heart failure, unspecified (ICD-10 - I50.9) Continue to follow with cardiology. 03/14/2024 Pathological fracture in other disease, other site, initial encounter for fracture (ICD-10 - M84.68XA) Patient recommended to start cholecalciferol (vitamin D3) at 1000 units daily. Also encouraged to increase sun exposure and increase calcium intake either through dietary sources like cheese and leafy greens or through a calcium supplement. 10/11/2024 Cirrhosis, alcoholic (ICD-10 - K70.30) 02/20/2024 Pathological fracture in other disease, other site, initial encounter for fracture (ICD-10 - M84.68XA) Will send order for DEXA bone density test. Will call pt with results and treat accordingly for osteoporosis or osteopenia. Discussed the importance of proper intake of calcium and vitamin D. Pt verbalized understanding. 01/03/2024 Cardiomyopathy (ICD-10 - I42.9) Keep upcoming appt with cardiology. 01/03/2024 Memory change (ICD-10 - R41.3) Will continue to monitor symptoms, consider memory testing, referral to Neurology in the future if episodes continue to happen or increase in frequency. 10/11/2024 Cardiomyopathy (ICD-10 - I42.9) 03/14/2024 Left hip pain (ICD-10 - M25.552) Toradol 30mg given in office today for acute hip pain. 07/14/2024 Alcoholic cirrhosis, unspecified whether ascites present (ICD-10 - K70.30) Continue to follow with GI. 10/11/2024 History of recent hospitalization (ICD-10 - Z92.89) Reviewed discharge summary from recent hospitalization. Patient taking medications as prescribed. Refills provided as patient requested. Discussed importance of taking lactulose. Follow up in 6 weeks. All questions and concerns addressed. 01/03/2024 GERD (gastroesophageal reflux disease) (ICD-10 - K21.9) GERD stable. Will continue current medications. F/u 3 months & PRN 01/03/2024 Anxiety (ICD-10 - F41.9) Anxiety stable. Will continue current medication. F/U 3 months & PRN 01/03/2024 Hyperlipidemia LDL goal <100 (ICD-10 - E78.5) Will continue current medication. F/U 3 months & PRN 01/03/2024 Other Body Mass Index : Care Instructions material was printed 02/20/2024 Other Body Mass Index : Care Instructions material was published 10/11/2024 Other Body Mass Index : Care Instructions material was published Plan Of Treatment Pending Test Test Name Order Date XR dexa axial skeleton 02/20/2024 Next Appt Details Provider Name:Olinda Husabrina jules, 11/11/2024 03:00:00 PM, [address] [facility] [place], [address], Insurance Providers Payer Name Payer Address Payer Phone Subscriber Number Group Number Insured Name Patient Relationship to Insured Coverage Start Date Coverage End Date [employer] [place] [employer] [address] [place] [phone] [id number] TANIA TOMLINSON Self - patient is the insured [employer] [facility] [place] [address] [place] [address] [id number] TANIA TOMLINSON Self - patient is the insured [employer] [place] [employer] [address] [address] [place] [address] [id number] TANIA TOMLINSON Self - patient is the insured [employer] [facility] [place] [address] [place] [address] [id number] TANIA TOMLINSON Self - patient is the insured 3 Medications Administered Medication Instructions Date of Administration Dosage Notes TORADOL 01/27/2021 2 mL TORADOL 01/03/2024 60 mg TORADOL 03/14/2024 30 mg Medical (General) History Medical History History ICD Code LEVEL 4 CHF DIABETES depression Cirrohis of liver HTN Hyperlipidemia Hiatal hernia Splenomegaly anemia esophageal varices Drug Abuse Surgical History Surgery Date(Month/Year) HEEL SPUR 03/2011 TUBAL LIGATION 1990 Cholecystectomy Lumpectomy Lt breast benign right knee surgery Left knee cartilage scrap 04/2016 EGD total abdominal hysterectomy Back Surgery kyphoplasty Hospitalization History Reason Date(Month/Year) see surgical Ammonia Levels 12/2023 Congestive heart Failure abdominal pain 05/2022 GI bleed 02/2015 Community acquired pneumonia 02/2013 PSYCH 1-SOUTH 1999 CHF 01/2012
[2024-10-17 14:08] LABS: Hematocrit 36.7 % (36.0-48.0); Hemoglobin 12.8 g/dL (12.0-16.0); Immature Granulocytes Abs Auto 0.04 10^3/uL (0.00-0.03); Immature Granulocytes Pct Auto 0.5 % (0.0-0.5); Lymphocytes Absolute Auto 1.8 10^3/uL (1.2-3.8); Mean Corpuscular HGB Conc 34.9 g/dL (29.9-35.2); Mean Corpuscular Hemoglobin 32.1 pg (26.7-34.0); Mean Corpuscular Volume 92.0 fL (81.0-99.0); Platelet Count 140 10^3/uL (150-450); Red Blood Count 3.99 10^6/uL (4.20-5.40); White Blood Count 8.0 10^3/uL (4.0-11.0)
[2024-10-17 14:09] LABS: Glucose Urine UA >=1000 mg/dL (NEGATIVE)
[2024-10-17] MEDS: 0.9 % SODIUM CHLORIDE 1,000 ML 1000 ML IV (14:11)
[2024-10-17 14:17] LABS: INR 1.20; Prothrombin Time 12.5 sec (9.0-11.6)
[2024-10-17 14:20] LABS: Cannabinoid Screen Urine POSITIVE (NEGATIVE); Methamphetamines Screen Urine NEGATIVE (NEGATIVE); Tricyclic Antidepressant Urine NEGATIVE (NEGATIVE)
[2024-10-17 14:36] LABS: Lactate/Lactic Acid 1.9 mmol/L (0.4-2.0)
[2024-10-17 14:42] LABS: Alanine Aminotransferase 47 U/L (14-59); Albumin Globulin Ratio 0.8; Albumin Level 3.1 g/dL (3.4-5.0); Alkaline Phosphatase 239 U/L (46-116); Anion Gap 13.6; Aspartate Amino Transferase 57 U/L (15-37); Blood Urea Nitrogen 16.0 mg/dL (7.0-18.0); Calcium 9.0 mg/dL (8.5-10.1); Carbon Dioxide 25.0 mmol/L (21.0-32.0); Chloride 104 mmol/L (98-107); Estimated GFR (African America >60 (>=60 mL/min/1.73m^2); Estimated GFR (Non-African Ame 55 (>=60 mL/min/1.73m^2); Globulin 3.8 g/dL; Glucose 223 mg/dL (74-106); Potassium 4.6 mmol/L (3.5-5.1); Sodium 138 mmol/L (136-145); Thyroid Stimulating Hormone 2.100 uIU/mL (0.358-3.740); Total Protein 6.9 g/dL (6.4-8.2)
[2024-10-17 14:45] LABS: Acetaminophen <2.0 ug/mL (10.0-30.0); Salicylate <2.8 mg/dL (<=19.9)
[2024-10-17 14:46] LABS: Crystals Seen? None Seen #/HPF (None Seen)
[2024-10-17 14:46] LABS: Ammonia 88 umol/L (11-32)
[2024-10-17 14:47] LABS: Cast Seen? NONE SEEN #/LPF (NONE SEEN); Urine Culture Indicated YES-FRMC
--- NOTE | 2024-10-17 15:01 | CT_ITS ---
The [address] [address] Patient Name: AMINAH LAND MRN: [id number] date: 1965 Sex: F Assigned Patient Location: ER Current Patient Location: ER Accession/Order Number: [id number] Exam Date: 10/17/2024 16:08 Report Date: 10/17/2024 16:13 At the request of: MANUEL WELLINGTON Procedure: CT abdomen pelvis w con CT ABDOMEN AND PELVIS WITH INTRAVENOUS CONTRAST: CLINICAL HISTORY: hyperbilirubinemia, elevated ammonia, vomiting, confusion COMPARISON: None TECHNIQUE: Spiral images were obtained through the abdomen and pelvis following the administration of intravenous contrast. This CT exam was performed using one or more following dose reduction techniques: Automated exposure control, adjustment of the mA and/or kV according to patient size, or use of iterative reconstruction technique. FINDINGS: Lung Bases: [Paraesophageal varices. Cardiomegaly. Hypoventilatory changes.] Organs:Nodular contour of the liver suggestive of cirrhosis. Subcentimeter hepatic hypodensities likely cysts. Perisplenic varices. Splenomegaly.[ GI: Mild to moderate retained stool. No bowel obstruction. Colonic diverticulosis. Appendix unremarkable.[ Pelvis:[Bladder unremarkable. Hysterectomy. No adnexal mass.] Peritoneum/Retroperitoneum:Mesenteric congestion degrades Evaluation for inflammatory changes. Mild ascites greatest along both upper quadrants.[No free air. Abd wall/Bones:Anasarca. L4 compression fracture status post kyphoplasty. Otherwise [id number] degenerative changes lower lumbar spine.[ CT/CT abdomen pelvis w con IMPRESSION: Findings of cirrhosis with splenomegaly and mild ascites. No definite acute inflammatory process or bowel obstruction although the mesenteric congestion does degrade evaluation for detection of inflammatory changes. Impression dictated by: Amrik Og M.D. 10/17/2024 4:13 PM Dictation Location: [place] [address] Electronically authenticated by: [id number] Y Date: 10/17/2024 16:13
[2024-10-17 15:03] LABS: ABG PCO2 31.1 mmHg (35.0-45.0); HCO3 ABG 21.4 mmol/L (22.0-26.0); Oxygen Saturation ABG 97.6 %; PO2 ABG 87.8 mmHg (80.0-100.0)
[2024-10-17 15:04] LABS: Allen Test POSITIVE (POSITIVE); O2 Mode RA; Puncture Site RR
[2024-10-17] MEDS: LACTULOSE 10 GM/15 ML UD CUP 30 GM PO (15:06)
--- NOTE | 2024-10-17 18:11 | PM.HP ---
HPI H&P: HPI History of Present Illness Chief complaint: CONFUSION, ALTERED MENTAL STATUS Narrative: This is a 58-year-old woman with a known history of alcohol cirrhosis who presented to the emergency room today with feeling confused and not being able to do normal activities of the day. She had to be brought to the emergency room from her job by her daughter. Her daughter points out that the patient could not put on a seatbelt correctly and the patient points out that when she was at work she could not count the money correctly and could not open the safe. She has been feeling off and been feeling confused for couple days. She got out of [facility] not very long ago. She was there for treatment of increased body edema and acute hepatic encephalopathy. For the last 3 days the patient has not had much to eat. It seems like 2 days ago she ate some chicken salad and then had vomiting right away. But after that singular episode of vomiting she did not have any more vomiting. She did not have any diarrhea. In fact she says she has not had any bowel movements for over 2 days. And so clinically she has the overall bedside appearance of somebody who is not taking any of her medications including lactulose and Xifaxan for the last 2 days. Using the retail pharmacy query I can see that she picked up her medications including lactulose, and then Xifaxan just a few days ago on October 11. The patient says that because she has medical insurance from the state [facility] she did not have to pay a lot of money for this prescription. And she and her family members agree that she has a lot less leg edema today than she did when she was at the outside hospital. When she was at [facility] I suspect that they increased her spironolactone from 25 mg a day up to 100 mg a day. In the emergency room today a CT scan of her head was negative. A CT scan of her abdomen pelvis shows slight amount of ascites and resultant mesenteric congestion. There is an old L4 kyphoplasty, and moderate stool throughout the colon.... so certainly she has not been taking her lactulose correctly. Her blood pressures in the emergency room were high, reaching 183/110 and she has been persistently tachycardic from 105 beats per minutes up to 112 bpm. Her alcohol level was ZERO. She was positive for cocaine and marijuana. In discussion with the patient and her daughter at the bedside the patient has never intentionally used cocaine. She says that she has been getting her marijuana from the same person for a long time. I suggested that it is possible that the marijuana she used is laced with traces of cocaine. The patient describes having a very difficult time sleeping when she gets anxious like this. When she was at [facility] she could not sleep at all during the nights in the hospital despite the use of melatonin and trazodone. Her daughter says that they want to get her into the family primary care provider to work on medicines to help her with her anxiety and this will help her sleep better. Her ammonia level in emergency room today was 88. She was given lactulose. She was given IV fluids. But her neurologic status is not safe enough to be discharged to home, even in the care of her family members who are obviously trying to help her very much. Opioid HPI Opioid Management Most Recent Pain and Opioid Data: Last Pain Scale 0 Today, 14:02 Ur Phencyclidine Scrn, (NEGATIVE) Negative Today, 13:55 Review of Systems ROS Narrative 10 point review of systems is completed and is negative except as mentioned elsewhere in this documentation. [facility] Medical History (Updated 10/17/24 @ 18:22 by GIULIANO TOLENTINO) Leg edema ?R60.0 - Localized edema (ICD-10) Ascites ?R18.8 - Other ascites (ICD-10) Portal hypertension ?K76.6 - Portal hypertension (ICD-10) Esophageal varices ?I85.00 - Esophageal varices without bleeding (ICD-10) Chronic diastolic (congestive) heart failure ?I50.32 - Chronic diastolic (congestive) heart failure (ICD-10) Surgical History History of esophagogastroduodenoscopy (EGD) ?Z98.890 - Other specified postprocedural states (ICD-10) History of hysterectomy ?Z90.710 - Acquired absence of both cervix and uterus (ICD-10) History of back surgery ?Z98.890 - Other specified postprocedural states (ICD-10) History of cholecystectomy ?Z90.49 - Acquired absence of other specified parts of digestive tract (ICD-10) Family History Other Family history of CHF (congestive heart failure) Family history of COPD (chronic obstructive pulmonary disease) Family history of cancer Family history of diabetes mellitus Family history of hypertension Social History Within the past year, how often did you have a drink containing alcohol: never Within the past year, how often did you have six or more drinks on one occasion: never Score interpretation: A score less than 3 is consistent with normal alcohol consumption. Smoking status: Never smoker Non-prescribed substance use: cannabis (any form) and crack/cocaine Previous occupational history: [employer] Highest level of school completed/degree received: some college, no degree Little interest or pleasure in doing things: not at all Feeling down, depressed, or hopeless: not at all Feel stressed/tense/nervous/anxious/difficulty sleeping: not at all Meds Home Medications and Allergies Home Medications ?Medication ?Instructions ?Recorded ?Confirmed ?Type atorvastatin 20 mg tablet 20 mg PO DAILY 10/17/24 10/17/24 History buspirone 10 mg tablet 10 mg PO BID 10/17/24 10/17/24 History carvedilol 6.25 mg tablet 6.25 mg PO BID 10/17/24 10/17/24 History cholecalciferol (vitamin D3) 25 25 mcg PO DAILY 10/17/24 10/17/24 History mcg (1,000 unit) tablet (Vitamin D3) dapagliflozin propanediol 10 mg 10 mg PO DAILY 10/17/24 10/17/24 History tablet (Farxiga) esomeprazole magnesium 40 mg 40 mg PO BID 10/17/24 10/17/24 History capsule,delayed release furosemide 40 mg tablet 40 mg PO DAILY 10/17/24 10/17/24 History lactulose 10 gram/15 mL oral 30 g PO TID 10/17/24 10/17/24 History solution magnesium 250 mg tablet 250 mg PO BID 10/17/24 10/17/24 History metformin 1,000 mg tablet 1,000 mg PO BID 10/17/24 10/17/24 History rifaximin 550 mg tablet (Xifaxan) 550 mg PO BID 10/17/24 10/17/24 History spironolactone 100 mg tablet 100 mg PO DAILY 10/17/24 10/17/24 History Allergies Allergy/AdvReac Type Severity Reaction Status Date / Time No Known Drug Allergies Allergy Verified 10/17/24 13:45 Exam Narrative Exam Narrative: General: Lying on the ER cot she is very tearful. She repeats the same story over and over again. Takes a lot of redirection to try and get her history. Her attentive daughter is at the bedside and does help provide the history. Upper extremities: She really has minimal tremor. Very minimal flapping asterixis tremor. No milkmaid's glue bone drier. Eyes: Conjunctiva and sclera clear. No scleral icterus. Neck: No jugular venous distention. Thyroid is smooth. Mouth: Oropharynx is clear, mucosal membranes are moist. Her family members just brought her in some dinner. Pulmonary: Clear to auscultation throughout. No wheezing. No rhonchi. No crackles. Cardiac: Regular rate and rhythm. No murmurs auscultation. GI: Bowel sounds are hypoactive. Abdomen is soft. No appreciable ascites. No palpable spider veins. Lower extremities: 2+ pitting edema from ankles most of the way up to her knees bilaterally which does have the appearance that it improved a great deal over the last few weeks. Neurologic: Sensation and motor intact to all 4 extremities so no focal neurologic deficits. Constitutional Vital Signs, click to edit/add: Last Vital Signs Temp 97.6 F 10/17/24 13:37 Pulse 112 H 10/17/24 16:40 Resp 27 H 10/17/24 16:40 BP 156/104 H 10/17/24 17:00 Pulse Ox 98 10/17/24 17:40 O2 Del Method Room Air 10/17/24 13:37 Results Labs Labs: Short CBC 10/17/24 Range/Units 13:50 WBC 8.0 (4.0-11.0) 10^3/uL Hgb 12.8 (12.0-16.0) g/dL Hct 36.7 (36.0-48.0) % Plt Count 140 L (150-450) 10^3/uL BMP 10/17/24 13:50 Sodium 138 Potassium 4.6 Chloride 104 Carbon Dioxide 25.0 BUN 16.0 Creatinine 1.02 Glucose 223 H Calcium 9.0 Liver Function 10/17/24 Range/Units 13:50 Total Bilirubin 2.5 H (0.2-1.0) mg/dL AST 57 H (15-37) U/L ALT 47 (14-59) U/L Alkaline Phosphatase 239 H (46-116) U/L Albumin 3.1 L (3.4-5.0) g/dL Urine 10/17/24 Range/Units 13:55 Urine Color Lt. yellow (YELLOW) Urine Clarity Sl cloudy (CLEAR) Urine pH 7.0 (5.0-9.0) Ur Specific [place] 1.010 (1.005-1.025) Urine Protein Negative (NEG/TRACE) mg/dL Urine Glucose (UA) >=1000 A (NEGATIVE) mg/dL ABG ABG results: 10/17/24 14:56 ABG pH 7.447 ABG pCO2 31.1 L ABG pO2 87.8 ABG HCO3 21.4 L ABG O2 Saturation 97.6 ABG Base Excess -2.6 L Assessment and Plan Assessment and Plan (1) Acute hepatic encephalopathy: (2) Altered mental status: Qualifiers: Altered mental status type: disorientation Qualified Code(s): R41.0 - Disorientation, unspecified (3) Intravascular volume depletion: (4) Cirrhosis: Qualifiers: Hepatic cirrhosis type: alcoholic cirrhosis Ascites presence: with ascites Qualified Code(s): K70.31 - Alcoholic cirrhosis of liver with ascites (5) Hypertension: Qualifiers: Hypertension type: primary hypertension Qualified Code(s): I10 - Essential (primary) hypertension (6) Diabetes: Qualifiers: Diabetes mellitus type: type 2 Diabetes mellitus terminologist insulin use: without mcfp use Diabetes mellitus complication status: without complication Qualified Code(s): E11.9 - Type 2 diabetes mellitus without complications (7) Insomnia: Qualifiers: Insomnia type: unspecified Qualified Code(s): G47.00 - Insomnia, unspecified (8) Anxiety: Plan Assessment: Acute hepatic encephalopathy. Intravascular volume depletion, which worsens hyperammonemia. Constipation. Alcohol cirrhosis, with portal hypertension, ascites, and esophageal varices. Primary essential systemic hypertension, uncontrolled, due to recent noncompliance with medications. Issues with anxiety and insomnia. Plan: Placement of the patient into the hospital in observation status. Give 1 more liter of IV fluid rehydration tonight. Resume all the medications the way she normally takes that at home, including her diuretics with spironolactone, and her Jardiance. Hold her metformin for 48 hours because she got IV contrast for the CT scan and the emergency room. Intensify her lactulose to 4 times a day. Recheck ammonia in the morning. Intensive Xifaxan to 550 mg 3 times a day. IV Lopressor 5 mg every 4 hours as needed systolic blood pressure greater than 150. To try and help her sleep tonight I will try a dose of doxepin. DVT prophylaxis with Lovenox 40 mg subcutaneously daily.
[2024-10-17] MEDS: DEXTROSE 5 %-0.45 % SOD CHLORD 1,000 ML 150 ML IV (19:46)
[2024-10-17] MEDS: RIFAXIMIN 550 MG TABLET PO ×2 (19:47→21:44)
[2024-10-17] MEDS: ENOXAPARIN SODIUM 40 MG/0.4 ML SYRINGE SUBQ (19:47)
--- NOTE | 2024-10-17 20:06 | PC.NURSE ---
Patient tearful. Oriented to place, month, but gave year.
[2024-10-17] MEDS: CARVEDILOL 6.25 MG TABLET PO (21:43)
[2024-10-17] MEDS: DOXEPIN HCL 10 MG CAPSULE PO (21:43)
[2024-10-17] MEDS: BUSPIRONE HCL 10 MG TABLET PO (21:43)
[2024-10-17] MEDS: PANTOPRAZOLE SODIUM 40 MG TABLET.DR PO (21:44)
[2024-10-17] MEDS: INSULIN ASPART 300 UNIT/3 ML PEN SUBQ (21:46)
[2024-10-18] MEDS: ALPRAZOLAM 1 MG TABLET PO (00:05)
[2024-10-18 04:00] VITALS: BP 113/61; PULSE 72; TEMP 36.4; O2SAT 96
[2024-10-18] MEDS: RIFAXIMIN 550 MG TABLET PO ×3 (06:36→21:04)
[2024-10-18 06:47] LABS: Hematocrit 32.3 % (36.0-48.0); Hemoglobin 10.9 g/dL (12.0-16.0); Immature Granulocytes Abs Auto 0.01 10^3/uL (0.00-0.03); Immature Granulocytes Pct Auto 0.2 % (0.0-0.5); Lymphocytes Absolute Auto 1.8 10^3/uL (1.2-3.8); Mean Corpuscular HGB Conc 33.7 g/dL (29.9-35.2); Mean Corpuscular Hemoglobin 31.3 pg (26.7-34.0); Mean Corpuscular Volume 92.8 fL (81.0-99.0); Platelet Count 96 10^3/uL (150-450); Red Blood Count 3.48 10^6/uL (4.20-5.40); White Blood Count 4.3 10^3/uL (4.0-11.0)
[2024-10-18 07:08] LABS: Alanine Aminotransferase 36 U/L (14-59); Albumin Globulin Ratio 0.8; Albumin Level 2.2 g/dL (3.4-5.0); Alkaline Phosphatase 144 U/L (46-116); Anion Gap 11.3; Aspartate Amino Transferase 44 U/L (15-37); Blood Urea Nitrogen 12.0 mg/dL (7.0-18.0); Calcium 8.2 mg/dL (8.5-10.1); Carbon Dioxide 25.7 mmol/L (21.0-32.0); Chloride 110 mmol/L (98-107); Estimated GFR (African America >60 (>=60 mL/min/1.73m^2); Estimated GFR (Non-African Ame >60 (>=60 mL/min/1.73m^2); Globulin 2.9 g/dL; Glucose 175 mg/dL (74-106); Magnesium 1.1 mg/dL (1.8-2.4); Potassium 4.0 mmol/L (3.5-5.1); Sodium 143 mmol/L (136-145); Total Protein 5.1 g/dL (6.4-8.2)
[2024-10-18 07:22] VITALS: BP 105/57; PULSE 75; TEMP 36.5; O2SAT 96
[2024-10-18 07:23] VITALS: PULSE 75
[2024-10-18 07:27] LABS: Ammonia 170 umol/L (11-32)
[2024-10-18] MEDS: FUROSEMIDE 40 MG TABLET PO (09:34)
[2024-10-18] MEDS: BUSPIRONE HCL 10 MG TABLET PO ×2 (09:34→21:04)
[2024-10-18] MEDS: CANAGLIFLOZIN 100 MG TABLET 300 MG PO (09:34)
[2024-10-18] MEDS: CHOLECALCIFEROL (VITAMIN D3) 25 MCG/1,000 UNITS TABLET PO (09:34)
[2024-10-18] MEDS: ENOXAPARIN SODIUM 40 MG/0.4 ML SYRINGE SUBQ (09:34)
[2024-10-18] MEDS: CARVEDILOL 6.25 MG TABLET PO ×2 (09:34→21:04)
[2024-10-18] MEDS: PANTOPRAZOLE SODIUM 40 MG TABLET.DR PO ×2 (09:34→21:04)
[2024-10-18] MEDS: INSULIN ASPART 300 UNIT/3 ML PEN SUBQ ×4 (09:35→21:05)
[2024-10-18] MEDS: SPIRONOLACTONE 100 MG TABLET PO (09:43)
[2024-10-18] MEDS: LACTULOSE 10 GM/15 ML BOTTLE 237 ML 40 GM PO ×3 (10:23→17:48)
[2024-10-18 12:00] VITALS: BP 104/65; PULSE 72; TEMP 36.8; O2SAT 97
--- NOTE | 2024-10-18 14:06 | P.PN_ITS ---
Progress Note: Subjective Subjective Interval history: This morning the patient's ammonia level ana rosa from 88 that she had in the ER yesterday up to 170. But it turns out that she was not administered her lactulose and 21:46 or 06:36. Today nursing staff has gotten a hold of the lactulose and began giving it to her as soon as they could. Her white blood count is normal at 4.3. Her magnesium is very low at 1.1. Her blood pressure is good at 105/57. Her heart rate is good at 75 bpm. The patient expresses that she did get a good amount of sleep last night. I think she is still having some lingering effects from that tonight. I did have her use doxepin 10 mg at nighttime last night. She denies any abdominal pain. She denies any chest pain. She denies any shortness of breath. Exam Narrative Exam Narrative: Seen in the morning on rounds she is reclining in bed curled on her side. She has a mild milkmaid's family welfare social work professor on handgrip. Cardiac: Regular rate and rhythm. No rubs or gallops to auscultation. No murmurs. Pulmonary: Clear to auscultation throughout. No wheezing. No rhonchi. No crackles. Gastrointestinal: She has very nice and very active bowel sounds. No abdominal pain. No appreciable ascites. Lower extremities: Similar level of lower extremity edema that she had in emergency room yesterday. Skin is warm and dry and well-perfused. Constitutional Vital Signs, click to edit/add: Last Vital Signs Temp 98.2 F 10/18/24 12:00 Pulse 72 10/18/24 12:00 Resp 18 10/18/24 12:00 BP 104/65 10/18/24 12:00 Pulse Ox 97 10/18/24 12:00 O2 Del Method Room Air 10/18/24 12:00 Progress Note: Objective Labs Labs: Short CBC 10/17/24 10/18/24 Range/Units 13:50 06:33 WBC 8.0 4.3 (4.0-11.0) 10^3/uL Hgb 12.8 10.9 L (12.0-16.0) g/dL Hct 36.7 32.3 L (36.0-48.0) % Plt Count 140 L 96 L (150-450) 10^3/uL BMP 08/01/25 08/02/25 13:50 06:33 Sodium 138 143 Potassium 4.6 4.0 Chloride 104 110 H Carbon Dioxide 25.0 25.7 BUN 16.0 12.0 Creatinine 1.02 0.65 Glucose 223 H 175 H Calcium 9.0 8.2 L Liver Function 10/17/24 10/18/24 Range/Units 13:50 06:33 Total Bilirubin 2.5 H 2.2 H (0.2-1.0) mg/dL Direct Bilirubin 0.8 H* (0.0-0.2) mg/dL AST 57 H 44 H (15-37) U/L ALT 47 36 (14-59) U/L Alkaline Phosphatase 239 H 144 H (46-116) U/L Albumin 3.1 L 2.2 L (3.4-5.0) g/dL Urine 10/17/24 Range/Units 13:55 Urine Color Lt. yellow (YELLOW) Urine Clarity Sl cloudy (CLEAR) Urine pH 7.0 (5.0-9.0) Ur Specific [place] 1.010 (1.005-1.025) Urine Protein Negative (NEG/TRACE) mg/dL Urine Glucose (UA) >=1000 A (NEGATIVE) mg/dL Progress Note: A&P Assessment and Plan (1) Acute hepatic encephalopathy: (2) Altered mental status: Qualifiers: Altered mental status type: disorientation Qualified Code(s): R41.0 - Disorientation, unspecified (3) Intravascular volume depletion: (4) Cirrhosis: Qualifiers: Hepatic cirrhosis type: alcoholic cirrhosis Ascites presence: with ascites Qualified Code(s): K70.31 - Alcoholic cirrhosis of liver with ascites (5) Hypertension: Qualifiers: Hypertension type: primary hypertension Qualified Code(s): I10 - Essential (primary) hypertension (6) Diabetes: Qualifiers: Diabetes mellitus type: type 2 Diabetes mellitus half-way insulin use: without local intermodal truck driver use Diabetes mellitus complication status: without complication Qualified Code(s): E11.9 - Type 2 diabetes mellitus without complications (7) Insomnia: Qualifiers: Insomnia type: unspecified Qualified Code(s): G47.00 - Insomnia, unspecified (8) Anxiety: Plan Assessment: Acute hepatic encephalopathy. Intravascular volume depletion, which worsens hyperammonemia. Now improved after IV fluids. Constipation. Still present on rounds this morning. The patient has not yet moved her bowels and so this may stay #3. Longstanding history of alcohol cirrhosis, with portal hypertension, ascites, and esophageal varices. Primary essential systemic hypertension, uncontrolled, due to recent noncompliance with medications. Issues with anxiety and insomnia. Plan: Give 1 more liter of IV fluid rehydration later today. Resume all the medications the way she normally takes that at home, including her diuretics with spironolactone, but I will hold her Jardiance and hold her Lasix as these are likely contributing to dehydration. Hold her metformin for 24 more hours because she got IV contrast for the CT scan and the emergency room. Intensify her lactulose to 4 times a day. Recheck ammonia tomorrow morning. Continue an increased dose of Xifaxan at 550 mg 3 times a day. IV Lopressor 5 mg every 4 hours as needed systolic blood pressure greater than 150. Continue to use doxepin to help her sleep at nighttime. DVT prophylaxis with Lovenox 40 mg subcutaneously daily.
[2024-10-18 15:37] VITALS: BP 118/68; PULSE 74; TEMP 36.7; O2SAT 95
[2024-10-18] MEDS: ALPRAZOLAM 0.5 MG TABLET PO (16:31)
[2024-10-18 19:27] VITALS: BP 124/88; PULSE 81; TEMP 36.6; O2SAT 97
[2024-10-18] MEDS: DOXEPIN HCL 10 MG CAPSULE PO (21:04)
[2024-10-19] VITALS: BP 112/65; PULSE 79; TEMP 36.5; O2SAT 93
[2024-10-19 04:00] VITALS: BP 107/56; PULSE 77; TEMP 36.6; O2SAT 92
[2024-10-19] MEDS: RIFAXIMIN 550 MG TABLET PO ×3 (05:21→21:29)
[2024-10-19] MEDS: LACTULOSE 10 GM/15 ML BOTTLE 237 ML 20 GM PO (05:22)
[2024-10-19 06:05] LABS: Hematocrit 33.9 % (36.0-48.0); Hemoglobin 11.3 g/dL (12.0-16.0); Immature Granulocytes Abs Auto 0.01 10^3/uL (0.00-0.03); Immature Granulocytes Pct Auto 0.2 % (0.0-0.5); Lymphocytes Absolute Auto 1.7 10^3/uL (1.2-3.8); Mean Corpuscular HGB Conc 33.3 g/dL (29.9-35.2); Mean Corpuscular Hemoglobin 31.6 pg (26.7-34.0); Mean Corpuscular Volume 94.7 fL (81.0-99.0); Platelet Count 99 10^3/uL (150-450); Red Blood Count 3.58 10^6/uL (4.20-5.40); White Blood Count 4.6 10^3/uL (4.0-11.0)
[2024-10-19 06:17] LABS: Alanine Aminotransferase 40 U/L (14-59); Albumin Globulin Ratio 0.8; Albumin Level 2.4 g/dL (3.4-5.0); Alkaline Phosphatase 159 U/L (46-116); Anion Gap 10.5; Aspartate Amino Transferase 51 U/L (15-37); Blood Urea Nitrogen 11.0 mg/dL (7.0-18.0); Calcium 8.7 mg/dL (8.5-10.1); Carbon Dioxide 30.5 mmol/L (21.0-32.0); Chloride 105 mmol/L (98-107); Estimated GFR (African America >60 (>=60 mL/min/1.73m^2); Estimated GFR (Non-African Ame 57 (>=60 mL/min/1.73m^2); Globulin 3.2 g/dL; Glucose 269 mg/dL (74-106); Potassium 4.0 mmol/L (3.5-5.1); Sodium 142 mmol/L (136-145); Total Protein 5.6 g/dL (6.4-8.2)
[2024-10-19 06:20] LABS: Ammonia 101 umol/L (11-32)
[2024-10-19 07:14] VITALS: BP 117/68; PULSE 76; TEMP 36.6; O2SAT 95
[2024-10-19] MEDS: INSULIN ASPART 300 UNIT/3 ML PEN SUBQ ×4 (07:41→21:30)
[2024-10-19] MEDS: SPIRONOLACTONE 100 MG TABLET PO (08:55)
[2024-10-19] MEDS: ENOXAPARIN SODIUM 40 MG/0.4 ML SYRINGE SUBQ (08:55)
[2024-10-19] MEDS: PANTOPRAZOLE SODIUM 40 MG TABLET.DR PO ×2 (08:55→21:30)
[2024-10-19] MEDS: CARVEDILOL 6.25 MG TABLET PO ×2 (08:55→21:29)
[2024-10-19] MEDS: CHOLECALCIFEROL (VITAMIN D3) 25 MCG/1,000 UNITS TABLET PO (08:55)
[2024-10-19] MEDS: BUSPIRONE HCL 10 MG TABLET PO ×2 (08:55→21:29)
[2024-10-19] MEDS: LACTULOSE 10 GM/15 ML BOTTLE 237 ML 30 GM PO ×3 (11:34→22:18)
[2024-10-19 12:00] VITALS: BP 110/61; PULSE 86; TEMP 36.7; O2SAT 96
--- NOTE | 2024-10-19 13:52 | P.PN_ITS ---
Progress Note: Subjective Subjective Interval history: This morning the patient's ammonia level improved, from the 170 it was yesterday down to 101. She had 1 bowel movement in the graphic art sales representative hours and then 1 bowel movement during the daytime today. She has been eating well. She ate breakfast and she ate lunch. No nausea. No vomiting. No abdominal pain. On interview she still says that she feels very confused. She said that somebody called her on her cell phone and she could not figure out how to answer it. She says that the thought crossed her mind that she could call the person back but she could not quite manipulate the phone to do that. She has no other red flag symptoms at this time: No fevers chills. No chest pain. No cough. No expectorate sputum. No dysuria. She says that she has gotten good night sleep both nights that she has been here. She asked if she could have the sleeping medicine (doxepin) at home. Her daughter has not yet been in to visit, but likely will be in a little bit later this afternoon. Exam Narrative Exam Narrative: Lying in bed at 1:30 in the afternoon. Neurologic: She is much better than she was yesterday. I think that she is probably about 60 to 70% all the way back to her baseline. Still with some foggy thinking. Cardiac: Regular rate and rhythm. No murmurs to auscultation. Pulmonary: Clear to auscultation throughout. No wheezes. No rhonchi. No crackles. GI: Very nice and very normal and very good sounding bowel sounds. No ascites is appreciated. Soft and nontender to palpation throughout. Lower extremities: Even when she presented to the ER 3 days ago with a lot of dehydration she had 1+ edema from her knees up to her ankles. Today this edema is about 90% improved. This may be mostly on the basis of leg elevation. Constitutional Vital Signs, click to edit/add: Last Vital Signs Temp 98.1 F 10/19/24 12:00 Pulse 86 10/19/24 12:00 Resp 18 10/19/24 12:00 BP 110/61 10/19/24 12:00 Pulse Ox 96 10/19/24 12:00 O2 Del Method Room Air 10/19/24 12:00 Progress Note: Objective Labs Labs: Short CBC 10/19/24 Range/Units 05:54 WBC 4.6 (4.0-11.0) 10^3/uL Hgb 11.3 L (12.0-16.0) g/dL Hct 33.9 L (36.0-48.0) % Plt Count 99 L (150-450) 10^3/uL BMP 10/19/24 05:54 Sodium 142 Potassium 4.0 Chloride 105 Carbon Dioxide 30.5 BUN 11.0 Creatinine 0.99 Glucose 269 H Calcium 8.7 Liver Function 10/19/24 Range/Units 05:54 Total Bilirubin 1.8 H (0.2-1.0) mg/dL AST 51 H (15-37) U/L ALT 40 (14-59) U/L Alkaline Phosphatase 159 H (46-116) U/L Albumin 2.4 L (3.4-5.0) g/dL Progress Note: A&P Assessment and Plan (1) Acute hepatic encephalopathy: (2) Altered mental status: Qualifiers: Altered mental status type: disorientation Qualified Code(s): R41.0 - Disorientation, unspecified (3) Intravascular volume depletion: (4) Cirrhosis: Qualifiers: Hepatic cirrhosis type: alcoholic cirrhosis Ascites presence: with ascites Qualified Code(s): K70.31 - Alcoholic cirrhosis of liver with ascites (5) Hypertension: Qualifiers: Hypertension type: primary hypertension Qualified Code(s): I10 - Essential (primary) hypertension (6) Diabetes: Qualifiers: Diabetes mellitus type: type 2 Diabetes mellitus halfway insulin use: without halfway use Diabetes mellitus complication status: without complication Qualified Code(s): E11.9 - Type 2 diabetes mellitus without complications (7) Insomnia: Qualifiers: Insomnia type: unspecified Qualified Code(s): G47.00 - Insomnia, unspecified (8) Anxiety: Plan Discussion: When I first met the patient in the emergency room the plan was to do some overnight lactulose and if her mentation improved she would be discharged the next day. However her ammonia has been harder to get under control than I originally anticipated. Therefore, with today continuing to be in the hospital and not yet at her neurologic baseline I am changing her status from observation status to inpatient status. She continues to require close monitoring of lactulose and Xifaxan administration, follow-up lab work, and follow-up ammonia levels. She is not yet safe to be able to be at home, where she lives alone. Assessment: Acute hepatic encephalopathy. Intravascular volume depletion, which worsens hyperammonemia. Present on admission. Now improved after IV fluids. Constipation. She had not moved her bowels at home for at least 2 days. Longstanding history of alcohol cirrhosis, with portal hypertension, ascites, and esophageal varices. Primary essential systemic hypertension, uncontrolled, due to recent noncompliance with medications. Now under control here in the hospital. Issues with anxiety and insomnia. Plan: Increase mobility today with nursing staff. Continue to hold the metformin because she got the CT scan with contrast in the emergency room. I am stopping her Lasix and Jardiance. I think that her recent hospital stay where spironolactone was uptitrated caused her body to get dehydrated which helped spike upwards the ammonia levels. Currently we have her on an intensified dose of her lactulose to 4 times a day. Recheck ammonia tomorrow morning. Continue an increased dose of Xifaxan at 550 mg 3 times a day. IV Lopressor 5 mg every 4 hours as needed systolic blood pressure greater than 150. Continue to use doxepin to help her sleep at nighttime. DVT prophylaxis with Lovenox 40 mg subcutaneously daily. When the daughter comes in I will stress with the daughter that the patient needs to be very strict about adhering to a very low sodium diet, using lactulose to get 3 bowel movements per day, every single day. Checking her weight daily on a scale at home to make sure she does not get dehydrated or become volume overloaded.
[2024-10-19 14:31] LABS: Ammonia 88 umol/L (11-32)
[2024-10-19 16:00] VITALS: BP 125/71; PULSE 82; TEMP 36.8; O2SAT 96
[2024-10-19] MEDS: HYDROXYZINE HCL 10 MG TABLET PO (16:29)
[2024-10-19 19:56] VITALS: BP 115/65; PULSE 87; TEMP 36.9; O2SAT 95
[2024-10-19] MEDS: DOXEPIN HCL 10 MG CAPSULE PO (21:29)
[2024-10-20 04:00] VITALS: BP 120/72; PULSE 76; TEMP 37.1; O2SAT 95
[2024-10-20] MEDS: RIFAXIMIN 550 MG TABLET PO (05:23)
[2024-10-20] MEDS: LACTULOSE 10 GM/15 ML BOTTLE 237 ML 30 GM PO ×2 (05:24→11:56)
[2024-10-20 05:33] LABS: Hematocrit 31.7 % (36.0-48.0); Hemoglobin 10.9 g/dL (12.0-16.0); Immature Granulocytes Abs Auto 0.02 10^3/uL (0.00-0.03); Immature Granulocytes Pct Auto 0.3 % (0.0-0.5); Lymphocytes Absolute Auto 1.8 10^3/uL (1.2-3.8); Mean Corpuscular HGB Conc 34.4 g/dL (29.9-35.2); Mean Corpuscular Hemoglobin 32.2 pg (26.7-34.0); Mean Corpuscular Volume 93.5 fL (81.0-99.0); Platelet Count 86 10^3/uL (150-450); Red Blood Count 3.39 10^6/uL (4.20-5.40); White Blood Count 6.7 10^3/uL (4.0-11.0)
[2024-10-20 05:48] LABS: Alanine Aminotransferase 36 U/L (14-59); Albumin Globulin Ratio 0.7; Albumin Level 2.1 g/dL (3.4-5.0); Alkaline Phosphatase 168 U/L (46-116); Anion Gap 12.2; Aspartate Amino Transferase 46 U/L (15-37); Blood Urea Nitrogen 9.0 mg/dL (7.0-18.0); Calcium 8.1 mg/dL (8.5-10.1); Carbon Dioxide 24.0 mmol/L (21.0-32.0); Chloride 105 mmol/L (98-107); Estimated GFR (African America >60 (>=60 mL/min/1.73m^2); Estimated GFR (Non-African Ame >60 (>=60 mL/min/1.73m^2); Globulin 3.0 g/dL; Glucose 235 mg/dL (74-106); Potassium 4.2 mmol/L (3.5-5.1); Sodium 137 mmol/L (136-145); Total Protein 5.1 g/dL (6.4-8.2)
[2024-10-20 05:49] LABS: Ammonia 114 umol/L (11-32)
[2024-10-20 08:15] VITALS: BP 110/69; PULSE 81; TEMP 36.9; O2SAT 95
[2024-10-20] MEDS: BUSPIRONE HCL 10 MG TABLET PO (08:28)
[2024-10-20] MEDS: ENOXAPARIN SODIUM 40 MG/0.4 ML SYRINGE SUBQ (08:28)
[2024-10-20] MEDS: MAGNESIUM HYDROXIDE 2,400 MG/10 ML ORAL.SUSP 2400 MG PO (08:28)
[2024-10-20] MEDS: CARVEDILOL 6.25 MG TABLET PO (08:28)
[2024-10-20] MEDS: PANTOPRAZOLE SODIUM 40 MG TABLET.DR PO (08:28)
[2024-10-20] MEDS: CHOLECALCIFEROL (VITAMIN D3) 25 MCG/1,000 UNITS TABLET PO (08:28)
--- NOTE | 2024-10-20 09:30 | CM.NOTE ---
Rounds made with Dr. Lanier, discussed with pt am lab work and plan of care. Dr. Lanire will also reach out to pt's daughter for update. Ammonia level remains high today, will continue lactulose.
[2024-10-20] MEDS: INSULIN ASPART 300 UNIT/3 ML PEN SUBQ (11:53)
--- NOTE | 2024-10-20 12:29 | SWNOTE1 ---
SW met with pt to discuss dc needs. Pt's daughter in room as well. Pt lives at home by herself, daughter checks in on her. Pt is independent. Pt does still work. She voiced she has found she has been in hospital more than she has been able to work. SW did ask her about positive Marijuana and Cocaine drug screen. Pt voiced that she buys vapes off the street and thinks that is why positive for Cocaine. Voiced she does not use Cocaine. SW offered any resources for drug/alcohol, pt denies needing. Pt then voiced concerns about her medical bills and paying other day to day bills. Pt voiced she is not sure what to do as she keeps getting hospitalized. SW advised that it may be beneficial to speak with her PCP about going on disability. Pt voiced that it may take awhile to get that approved and what should she do in the mean time? 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 Pt voiced she does have good insurance and has not had any hospital bills. SW again encouraged pt to check with her PCP about disability. Doctor entered room at this time.
--- NOTE | 2024-10-20 12:33 | DIETREC ---
Recommend 1800 kcal CCD, no added salt diet.
--- NOTE | 2024-10-20 12:49 | CM.NOTE ---
Called church secretary to see pt, daughter has questions regarding pt's diet. Consult is ordered.
--- NOTE | 2024-10-20 13:16 | SWNOTE1 ---
SW stopped back in and spoke with pt. SW offered any resources for her, pt voiced she is having her daughter throw away all her vapes. She will also follow up with physician about her anxiety and disability. Voiced that is why she vaped due to her anxiety, but the hospitalist is starting her on medication and she has to follow up with PCP.
--- NOTE | 2024-10-20 14:12 | PM.DS1 ---
DS: Providers Provider Date of admission: 10/19/24 13:50 Primary care physician: Sonia Parker NP Admitting clinician: GIULIANO TOLENTINO Consults: 10/17/24 18:04 Physical Therapy Eval and Treat Routine Reason for consultation: frequent falls Has provider been notified: No 10/19/24 18:33 Consult to Dietitian Routine Reason for consultation: LOW sodium, also diabetic Has provider been notified: No DS: Diagnosis Discharge Diagnosis (1) Acute hepatic encephalopathy: (2) Altered mental status: Qualifiers: Altered mental status type: disorientation Qualified Code(s): R41.0 - Disorientation, unspecified (3) Intravascular volume depletion: (4) Cirrhosis: Qualifiers: Hepatic cirrhosis type: alcoholic cirrhosis Ascites presence: with ascites Qualified Code(s): K70.31 - Alcoholic cirrhosis of liver with ascites (5) Hypertension: Qualifiers: Hypertension type: primary hypertension Qualified Code(s): I10 - Essential (primary) hypertension (6) Diabetes: Qualifiers: Diabetes mellitus type: type 2 Diabetes mellitus fdc insulin use: without fdc use Diabetes mellitus complication status: without complication Qualified Code(s): E11.9 - Type 2 diabetes mellitus without complications (7) Insomnia: Qualifiers: Insomnia type: unspecified Qualified Code(s): G47.00 - Insomnia, unspecified (8) Anxiety: (9) Urinary tract infection: DS: Summary Hospital Course Hospital Course: Miss Tomlinson is a 58-year-old female who was admitted the hospital of the evening of August 17 with a chief complaint of confusion and sluggishness , she was found to have hepatic encephalopathy with an elevated ammonia above 88 in the emergency room. She was given lactulose, her home medication rifaximin was continued. Throughout the admission her mental status did appear to get better in a stepwise fashion despite her ammonia levels fluctuating. Her lactulose was increased to 30 mL 4 times daily and rifaximin was increased to 550 3 times daily. Her spironolactone and Lasix were placed on hold due to concerns of intravascular volume depletion which may have been the contributing factor for her acute hepatic encephalopathy. Her mental status improved and the morning of October 20 she was alert and oriented by 3, there is no evidence of jaundice, she was able to answer second to your questions, the daughter was present and stated that the patient definitely was improved and close to her baseline. The patient did tell me that she would feel more comfortable at home. I had a very long discussion with them regarding her medications, plan to discharge her on increased dose of lactulose 4 times daily, return to regular dosing of rifaximin and I will also be decreasing her dose of Lasix and Aldactone, 20 mg p.o. daily and 50 mg p.o. daily respectively. I did tell the patient that she should watch her weight and lower extremity swelling closely, if her swelling begins to return with this then she should take an extra dose of Lasix. I also did tell them to emphasize on a consistent fluid intake which will make your Lasix easier to manage. I also instructed her to take an extra dose of lactulose if she notices that her bowels are beginning to slow down. She has a pre-existing appointment on November 11 with her PCP, our house shoe parts caser did reach out to have this appointment moved up and timeline. On admission her urinalysis was suspicious for infection though was not clear enough to treat empirically, the patient is not having any symptoms or dysuria however the day of discharge her urine culture finalized as greater than 100,000 CFU of Citrobacter, a 5-day course of levofloxacin was also given patient on discharge. Time Spent with Patient Time attestation: Total time spent providing and/or coordinating discharge services: Exam Narrative Exam Narrative: General: Awake and alert, no acute distress HEENT: Normocephalic, atraumatic, no scleral icterus noted Lungs: Clear to auscultation bilaterally Cardiac: Regular rate and rhythm, no murmurs appreciated GI: Soft, nontender, regular bowel sounds. Extremities: Active and passive range of motion intact throughout, there is some nonpitting edema in her bilateral lower extremities in the mid aviles Neuro: Cranial nerves II to XII intact, alert and already by 3, no focal deficits Skin: No rashes or lesions, no signs of jaundice Constitutional Vital Signs, click to edit/add: Last Vital Signs Temp 98.4 F 10/20/24 08:15 Pulse 81 10/20/24 08:15 Resp 16 10/20/24 08:15 BP 110/69 10/20/24 08:15 Pulse Ox 95 10/20/24 08:15 O2 Del Method Room Air 10/20/24 08:15 DS: Data Data Completed and Pending Labs on day of discharge: Labs from last 24 hours 10/20/24 10/20/24 10/20/24 11:51 08:28 05:22 WBC 6.7 RBC 3.39 L Hgb 10.9 L Hct 31.7 L MCV 93.5 MCH 32.2 MCHC 34.4 RDW 14.7 Plt Count 86 L MPV 10.0 Neut % (Auto) 59.0 Lymph % (Auto) 27.4 [place] % (Auto) 9.6 Eos % (Auto) 3.2 Baso % (Auto) 0.5 Neut # (Auto) 3.9 Lymph # (Auto) 1.8 [place] # (Auto) 0.6 Eos # (Auto) 0.2 Baso # (Auto) 0.0 Abs Immat Gran (auto) 0.02 Imm/Tot Granulo (auto) 0.3 Sodium 137 Potassium 4.2 Chloride 105 Carbon Dioxide 24.0 Anion Gap 12.2 BUN 9.0 Creatinine 0.83 Est GFR ( Amer) >60 Est GFR (Non-Af Amer) >60 BUN/Creatinine Ratio 10.8 Glucose 235 H Calcium 8.1 L Total Bilirubin 1.7 H AST 46 H ALT 36 Alkaline Phosphatase 168 H Ammonia 114 H* Total Protein 5.1 L Albumin 2.1 L Globulin 3.0 Albumin/Globulin Ratio 0.7 POC Glucose 351 H 189 H 10/19/24 10/19/24 10/19/24 21:28 16:21 14:04 WBC RBC Hgb Hct MCV MCH MCHC RDW Plt Count MPV Neut % (Auto) Lymph % (Auto) [place] % (Auto) Eos % (Auto) Baso % (Auto) Neut # (Auto) Lymph # (Auto) [place] # (Auto) Eos # (Auto) Baso # (Auto) Abs Immat Gran (auto) Imm/Tot Granulo (auto) Sodium Potassium Chloride Carbon Dioxide Anion Gap BUN Creatinine Est GFR ( Amer) Est GFR (Non-Af Amer) BUN/Creatinine Ratio Glucose Calcium Total Bilirubin AST ALT Alkaline Phosphatase Ammonia 88 H* Total Protein Albumin Globulin Albumin/Globulin Ratio POC Glucose 280 H 241 H Preliminary micro results at discharge 10/17/24 14:17 Blood Culture Result 2 - Preliminary Blood - Right Antecubital NO GROWTH AT 36-48 HOURS. FINAL TO FOLLOW. 10/17/24 14:11 Blood Culture Result 1 - Preliminary Blood - Left Antecubital NO GROWTH AT 36-48 HOURS. FINAL TO FOLLOW. 10/17/24 13:55 Urine Culture - Preliminary Urine,Clean Catch Pending - Specimen sent to [facility] Discharge Plan Discharge Disposition: Home, Self-Care Condition: Fair Plan of Treatment: Please check your weight daily at home as well as your lower extremity swelling, I have reduced the dose of your Lasix and Aldactone back to the previously prescribed amounts. If you notice your swelling increasing take an extra dose of Lasix. While taking Lasix, please be sure to try and have a consistent fluid intake each day. Please make sure that you are having 2-3 soft bowel movements a day, if you are not, please take another dose of lactulose as needed to maintain 2-3 soft bowel movements a day. Discharge Medications: New hydroxyzine HCl 10 mg Tablet 10 mg PO Q6H PRN (Reason: anxiety) 15 Days Qty: 60 0RF furosemide [Lasix] 20 mg tablet 20 mg PO DAILY Qty: 30 0RF spironolactone [Aldactone] 50 mg tablet 50 mg PO DAILY Qty: 30 0RF levofloxacin 750 mg tablet 750 mg PO DAILY 5 Days Qty: 5 0RF Continued esomeprazole magnesium 40 mg capsule,delayed release(DR/EC) 40 mg PO BID atorvastatin 20 mg tablet 20 mg PO DAILY cholecalciferol (vitamin D3) [Vitamin D3] 25 mcg (1,000 unit) tablet 25 mcg PO DAILY Xifaxan 550 mg tablet 550 mg PO BID dapagliflozin propanediol [Farxiga] 10 mg tablet 10 mg PO DAILY metformin 1,000 mg tablet 1,000 mg PO BID buspirone 10 mg tablet 10 mg PO BID magnesium 250 mg tablet 250 mg PO BID carvedilol 6.25 mg tablet 6.25 mg PO BID Rx Instructions: must administer with a meal/food Trulicity 1.5 mg/0.5 mL pen injector 1.5 mg SUBCUT .WEEKLY Changed lactulose 10 gram/15 mL solution 30 g PO QID Qty: 0 0RF Discontinued spironolactone 100 mg tablet 100 mg PO DAILY furosemide 40 mg tablet 40 mg PO DAILY Activity: resume usual activities as tolerated Activity Detail: Please check your weight daily at home as well as your lower extremity swelling, I have reduced the dose of your Lasix and Aldactone back to the previously prescribed amounts. If you notice your swelling increasing take an extra dose of Lasix. While taking Lasix, please be sure to try and have a consistent fluid intake each day. Please make sure that you are having 2-3 soft bowel movements a day, if you are not, please take another dose of lactulose as needed to maintain 2-3 soft bowel movements a day. Diet: regular diet Print Language: Vietnamese Patient Instructions: Hepatic Encephalopathy (DC), Acute Delirium (DC) Forms: Portal Instructions Follow Up Appointments: Dr. Quinones Oct @3:15 address [address] phone. [phone]
--- NOTE | 2024-10-24 15:19 | CM.DCFOLLOWU ---
Person spoke with:patient How are you feeling?so/so How is your pain? none Did you understand your discharge instructions?yes Do you have any questions about your discharge instructions?no Were you given any prescriptions at discharge?yes Were you able to get your prescriptions filled?yes Do you understand how to take your medications as ordered?yes Do you have any questions about your follow up appointment and do you plan to keep your follow up appointment? no questions, follow up is Sunday Is there anything else that you would like to discuss?no Questions/Comments/Concerns/Other: none
== END 2024-10-20 14:27 | disposition home or self-care (01) | DRG 280 ==
LOC: ER 17:25 → MS 17:58
PROVIDERS: Physician Assistant; Admitting Provider Hospitalist; Emergency Provider Emergency Medicine; PCP Nurse Practitioner Family; Visit Provider Internal Medicine
DX: K76.82 Hepatic encephalopathy (principal); T47.3X6A Underdosing of saline and osmotic laxatives, initial encounter; K70.31 Alcoholic cirrhosis of liver with ascites; K76.6 Portal hypertension; I50.32 Chronic diastolic (congestive) heart failure; Z90.710 Acquired absence of both cervix and uterus; I11.0 Hypertensive heart disease with heart failure; Z79.84 Long term (current) use of oral hypoglycemic drugs; Z79.899 Other long term (current) drug therapy; E86.9 Volume depletion, unspecified; E11.9 Type 2 diabetes mellitus without complications; G47.00 Insomnia, unspecified; F41.9 Anxiety disorder, unspecified; K59.00 Constipation, unspecified; I85.10 Secondary esophageal varices without bleeding; Z91.148 Patient's other noncompliance with medication regimen for other reason; E86.0 Dehydration; N39.0 Urinary tract infection, site not specified; B96.89 Other specified bacterial agents as the cause of diseases classified elsewhere; Z82.49 Family history of ischemic heart disease and other diseases of the circulatory system
CPT/HCPCS: 36415; 36600; 70450; 71045; 74177; 80048; 80053; 80076; 80179; 80307; 80320; 80329; 81001; 82140; 82306; 82805; 82948; 83605; 83735; 84443; 84484; 85025; 85610; 86140; 87040; 87086; 87088; 87186; 93005; 96360; 96361; 96372; 97161; 99285; G0378; J1650; Q9967